=== PATIENT | female | born 1950 | race Caucasian/White ===

== ENCOUNTER → 2016-06-29 | Outpatient (REF) | payer OTHER ==
[~2016-06-29] MED LIST: ASPI81CH PO; COUM1TAB17 PO; LIPI20TA PO; NICO7DIS4 TD
== END ==
LOC: M SFHCPLAZ 10:35
PROVIDERS: ATTEND Family Medicine
DX: R30.0 Dysuria (principal); Z79.01 Long term (current) use of anticoagulants

== ENCOUNTER → 2016-11-26 | Outpatient (REF) | payer MEDICARE, OTHER | LOC: M SFHCPLAZ 08:04 | PROVIDERS: ATTEND Family Medicine | DX: Z51.81 Encounter for therapeutic drug level monitoring (principal); Z79.01 Long term (current) use of anticoagulants; R76.0 Raised antibody titer; Z53.8 Procedure and treatment not carried out for other reasons ==

== ENCOUNTER → 2017-03-15 | Outpatient (CLI) | payer MEDICARE, OTHER ==
[2017-03-15 09:10] LABS: ALBUMIN 3.6 GM/DL (3.2-5.2); ALBUMIN/GLOBULIN RATIO 0.97 (1.00-1.93); BILIRUBIN,TOTAL 0.7 MG/DL (0.2-1.0); CREATININE FOR GFR 0.99 MG/DL (0.55-1.02); GLOMERULAR FILTRATION RATE 59.9 (>45); POTASSIUM SERUM 4.9 MEQ/L (3.5-5.1); TOTAL PROTEIN 7.3 GM/DL (6.4-8.2)
== END ==
LOC: M LAB 08:09
PROVIDERS: ATTEND Obstetrics & Gynecology
DX: Z68.42 Body mass index [BMI] 45.0-49.9, adult (principal); E66.9 Obesity, unspecified

== ENCOUNTER → 2017-04-18 | Outpatient (CLI) | payer MEDICARE ==
--- NOTE | 2017-04-18 16:47 | REP ---
Digital diagnostic unilateral right breast mammography with CAD and focused right breast sonography: History: Screening mammography April 11, 2017 is BIRADS category zero incomplete because of an asymmetric density in the upper outer quadrant on the right. Diagnostic imaging was recommended. Comparison mammography includes April 11, 2015 prior mammography as well. Mammographic findings: Magnified focal spot compression CC, true MLO, and MLO views of the right breast were obtained. These demonstrate that the area in question compresses away to normal breast parenchyma unchanged from the 2015 prior study. No spiculation architectural distortion or mass-like features are seen. Sonographic findings: The right breast is scanned from 9 o'clock 12 o'clock in the upper outer quadrant. Heterogeneous fibroglandular background echotexture is seen. No mass cyst or architectural distortion is seen. Impression: BIRADS category II benign right breast imaging. Repeat screening mammography recommended 1 year. BI-RADS/ACR category 2 mammogram. Benign finding(s). Routine annual screening mammography (for women over age 40). This mammogram was interpreted with the aid of an FDA-approved computer-aided detection system. The patient states that she has not had a clinical breast exam in over a year. The patient letter being requested is M1. Signed by Sorin Ventura MD 04/18/2017 05:29 P
== END ==
LOC: M RAD 12:22
PROVIDERS: ATTEND Obstetrics & Gynecology
DX: R92.2 Inconclusive mammogram (principal)
CPT/HCPCS: 76642; G0206

== ENCOUNTER → 2017-04-23 | Outpatient (REF) | payer MEDICARE | LOC: M SFHCPLAZ 11:46 | PROVIDERS: ATTEND Family Medicine | DX: R30.0 Dysuria (principal) | CPT/HCPCS: 81001; 81002; 87086; G0463 ==

== ENCOUNTER → 2018-04-14 | Outpatient (CLI) | payer MEDICARE | LOC: M WHC 14:02 | DX: Z12.31 Encounter for screening mammogram for malignant neoplasm of breast (principal); Z78.0 Asymptomatic menopausal state | CPT/HCPCS: 77067 ==

== ENCOUNTER → 2018-09-25 | Outpatient (REF) | payer MEDICARE ==
[~2018-09-25] MED LIST changes: -ASPI81CH PO; +ASPI81CH49 PO
== END ==
LOC: M SFHCPLAZ 15:55
PROVIDERS: ATTEND Dermatology
DX: L85.9 Epidermal thickening, unspecified (principal); D22.5 Melanocytic nevi of trunk

== ENCOUNTER 2018-12-23 17:36 | Inpatient (IN) | payer MEDICARE ==
[~2018-12-23] VITALS: Ht 152.4 cm; Wt 127.8 kg
--- NOTE | 2018-12-23 19:02 | REPVR ---
EXAM: US Duplex Left Lower Extremity Veins, Limited EXAM DATE/TIME: 12/23/2018 6:48 PM CLINICAL HISTORY: 68 years old, female; Pain; Leg, lower; Left; Additional info: Pain, swelling, redness TECHNIQUE: Imaging protocol: Real-time Duplex ultrasound of the Left Lower Extremity with 2-D castro scale, color Doppler flow and spectral waveform analysis with image documentation. Limited exam focused on the left lower extremity veins. COMPARISON: US Duplex, Ext,LOWER veins,unilat 12/29/2013 7:59 PM FINDINGS: Left deep veins: Unremarkable. The common femoral, femoral and popliteal veins are patent without thrombus. Normal compressibility, augmentation response and Doppler waveforms. Soft tissues: Unremarkable. IMPRESSION: No sonographic evidence of deep vein thrombosis. Electronically signed by: José Antonio Turcios On 12/23/2018 19:02:10 PM
[2018-12-23] MEDS ORDERED: NS 1,000 ML IV ONE (19:45)
[2018-12-23 20:18] LABS: BASO % 0.4 % (0.0-1.0); EOS % 0.2 % (0.0-3.0); HEMATOCRIT 48.7 % (36.0-47.0); HEMOGLOBIN 15.6 g/dl (12.0-15.5); LYMPH # 0.7 10^3/uL (1.5-4.5); LYMPH % 8.8 % (24.0-44.0); MEAN CORPUSCULAR HEMOGLOBIN 34.4 pg (27.0-33.0); MEAN CORPUSCULAR VOLUME 107.5 fl (80.0-96.0); MONO # 0.4 10^3/uL (0.0-0.8); MONO % 4.3 % (0.0-5.0); NEUTROPHILS % 86.1 % (36.0-66.0); PLATELET COUNT, AUTOMATED 181 10^3/uL (150-450); RED BLOOD COUNT 4.53 10^6/uL (4.00-5.40); WHITE BLOOD COUNT 8.2 10^3/uL (4.0-10.0)
[2018-12-23 20:42] LABS: ERYTHROCYTE SEDIMENTATION RATE 7 mm/hr (0-30)
[2018-12-23] MEDS: IPRATROPIUM 0.5MG/ALBUTEROL 2.5MG INH SOL UD 3ML (DUONEB)(J7620) NEB PRN ×2 (20:48→21:36)
[2018-12-23 21:04] LABS: INR 1.41
[2018-12-23 21:06] LABS: D-DIMER QUANT 548.14 ng/ml (<500)
[2018-12-23] MEDS ORDERED: ISOVUE-370 76% 100ML VIAL (Q9967) As Ordered ONE ×2 (22:04→22:24)
[2018-12-23] MEDS ORDERED: PIPERACILLIN/TAZOBACTAM SOD 3.375 GM in D5W MINI-BAG PLUS 50 ML IV ONE (22:30)
--- NOTE | 2018-12-23 23:12 | REPVR ---
EXAM: CT Angiography Chest With Contrast EXAM DATE/TIME: 12/23/2018 10:48 PM CLINICAL HISTORY: 68 years old, female; Shortness of breath; Additional info: Decr. O2, hazy cxr, SOB, pursed lip breathing TECHNIQUE: Imaging protocol: Axial computed tomographic angiography images of the chest with intravenous contrast using CT angiography protocol. Coronal and sagittal reformatted images were created and reviewed. 3D rendering: MIP reconstructed images were created and reviewed. Radiation optimization: All CT scans at this facility use at least one of these dose optimization techniques: automated exposure control; mA and/or kV adjustment per patient size (includes targeted exams where dose is matched to clinical indication); or iterative reconstruction. Contrast material: ISOVUE 370; Contrast volume: 75 ml; Contrast route: IV; COMPARISON: CT ANGIO CHEST 12/30/2013 12:51 AM FINDINGS: Pulmonary arteries: Contrast opacification satisfactory. No intraluminal filling defect. Aorta: Unremarkable. No aneurysm or dissection. Lungs: Mild emphysema. Mild linear stranding and groundglass, likely due to atelectasis and/or scarring. No focal consolidation. Pleural space: Unremarkable. No pneumothorax. No pleural effusion. Heart: Unremarkable. No cardiomegaly. No pericardial effusion. Mediastinum: Small hiatal hernia. Gallbladder and bile ducts: Cholelithiasis. Phrygian cap. Adrenals: Mild nonspecific nodular left greater than right adrenal thickening, likely secondary to benign adenomas. Kidneys and ureters: Right renal cortical scarring. Nonobstructing left renal calculus. Lymph nodes: No pathologically enlarged lymph nodes. Bones/joints: No acute osseous abnormality. Osteopenia. Degenerative changes. Soft tissues: Unremarkable. IMPRESSION: 1. No CT evidence of pulmonary embolism. 2. Additional findings, as above. Electronically signed by: José Antonio Turcios On 12/23/2018 23:12:36 PM
[2018-12-23] MEDS ORDERED: METO1TAB87 PO (23:39)
[2018-12-23] MEDS ORDERED: FURO40TA2 PO (23:39)
[2018-12-23] MEDS ORDERED: LISI-542 PO (23:39)
[2018-12-23] MEDS ORDERED: ATOR40TA75 PO (23:39)
[2018-12-23] MEDS ORDERED: ELIQ5TAB PO (23:39)
[2018-12-23] MEDS ORDERED: ACET-907 PO (23:55)
--- NOTE | 2018-12-24 00:28 | HPEPDOC ---
General Date of Admission 12/23/16 Date of Service: Dec 23, 2018 Primary Care Physician: Nico Juarez MD Attending Physician: TEQUILA MENDEZ MD Chief Complaint The patient is a 68-year-old female admitted with a reason for visit of Leg Pain. Source: Patient Exam Limitations: No limitations Timing/Duration: Day(s) Severity: Moderate Associated Symptoms: Other History of Present Illness 68 years old, obese, white female past medical history of hypertension, bilateral lower extremity edema, chronic vascular changes, emphysema, was scratched by a kitten on her left leg and ever since has increasing redness, swelling and difficulty walking. She decided come to ER. Patient did not complain to me about her respiratory problems but as per ER records, she complained of shortness of breath for which she had a pulmonary workup done in ED. Patient is being admitted with the diagnosis of left lower extremity cellulitis and possible emphysema Home Medications Scheduled Apixaban (Eliquis) 5 Mg Tablet, 5 MG PO BID, (Reported) 0700, 1700 Atorvastatin Calcium (Atorvastatin Calcium) 40 Mg Tablet, 40 MG PO QPM, (Reported) TAKES AT 1700 Furosemide (Furosemide) 40 Mg Tablet, 40 MG PO DAILY, (Reported) Lisinopril (Lisinopril) 5 Mg Tablet, 5 MG PO DAILY, (Reported) Metoprolol Tartrate (Metoprolol Tartrate) 25 Mg Tablet, 37.5 MG PO DAILY, (Reported) Scheduled PRN Acetaminophen (Tylenol) 325 Mg Tablet, 650 MG PO Q4H PRN for HEADACHE OR PAIN, (Reported) Allergies Coded Allergies: No Known Allergies (Unverified , 12/30/13) Past Medical History Medical History Hypertension, obesity, DVT, PE Surgical History Hysterectomy Social History * Smoker: Denies Alcohol: Denies Drugs: denies A-FIB/CHADSVASC A-FIB History Current/History of A-Fib/PAF?: No Review of Systems Constitutional: Denies: Chills, Fever, Malaise, Night Sweats, Weakness, Fatigue, Weight Loss, Lethargy, Other Eyes: Denies: Pain, Vision change, Conjunctivae inflammation, Eyelid inflammation, Redness, Other ENT: Denies: Head Aches, Ear Pain, Dysphagia, Sinus Congestion, Post Nasal Drip, Sore Throat, Epistaxis, Other Symptoms Skin: Denies: Rash, Lesions, Jaundice, Bruising, Itching, Dry, Breakdown, Nail Changes, Other Pulmonary: Denies: Dyspnea, Cough, Pleuritic Chest Pain, Other Symptoms Cardiovascular: Denies: Chest Pain, Palpitations, Orthopnea, Paroxysmal Noc. Dyspnea, Edema, Lt Headedness, Other Symptoms Gastrointestinal: Denies: Nausea, Vomiting, Abdominal Pain, Diarrhea, Constipation, Melena, Hematochezia, Other Symptoms Genitourinary: Denies: Dysuria, Frequency, Incontinence, Hematuria, Retention, Other Symptoms Hematologic: Denies: Bruising, Bleeding Excessively, Petecchia, Purpura, Enlarg ed Lymph Nodes, Other Hematologic Musculoskeletal: Reports: Other Symptoms (after lower extremity redness and swelling and difficulty walking) Neurological: Denies: Weakness, Numbness, Incoordination, Change in speech, Confusion, Seizures, Other Symptoms Psych: Denies: Mood Normal, Anxiety, Depression, Memory Issues, Thoughts of Lucía f Harm, Anger, Thoughts of Harming Other, Other Psych Physical Examination General Exam: Positive: Alert, Cooperative Eye Exam: Positive: PERRLA, Conjunctiva & lids normal ENT Exam: Positive: Atraumatic Neck Exam: Positive: Supple Chest Exam: Positive: Wheezing (. Scattered bilateral wheezing with decreased breath sounds bilaterally) Heart Exam: Positive: Rate Normal, Normal S1, Normal S2 Abdomen Exam: Positive: Normal bowel sounds, Soft Extremity Exam: Positive: Other (. Positive redness, swelling and tenderness, left lower extremity chronic vascular changes. Bilateral lower extremity) Skin Exam: Positive: Other skin issue (as above) Psych Exam: Positive: Mental status NL, Mood NL, Oriented x 3 Vital Signs Vital Signs Date Time Temp Pulse Resp B/P (MAP) Pulse Ox O2 Delivery O2 Flow Rate FiO2 12/23/18 20:43 100 92 Nasal Cannula 2.0 12/23/18 19:51 98.8 101 119/59 (79) Laboratory Data Labs 24H Laboratory Tests 2 12/23/18 20:06: Prothrombin Time 17.0H, Prothromb Time International Ratio 1.41, D-Dimer, Quantitative 548.14H 12/23/18 20:07: Immature Granulocyte % (Auto) 0.2, White Blood Count 8.2, Red Blood Count 4.53, Hemoglobin 15.6H, Hematocrit 48.7H, Mean Corpuscular Volume 107.5H, Mean Corpuscular Hemoglobin 34.4H, Mean Corpuscular Hemoglobin Concent 32.0, Red Cell Distribution Width 13.2, Platelet Count 181, Neutrophils (%) (Auto) 86.1H, Lymphocytes (%) (Auto) 8.8L, Monocytes (%) (Auto) 4.3, Eosinophils (%) (Auto) 0.2, Basophils (%) (Auto) 0.4, Neutrophils # (Auto) 7.0, Lymphocytes # (Auto) 0.7L, Monocytes # (Auto) 0.4, Eosinophils # (Auto) 0.0, Basophils # (Auto) 0.0, Nucleated Red Blood Cells % (auto) 0.0, Erythrocyte Sedimentation Rate 7, Lactic Acid Level 2.3*H, C-Reactive Protein, Quantitative 1.49H 12/23/18 20:11: POC Glucose (Misc Panel) 131H, POC Sodium (Misc Panel) 141, POC Potassium (Misc Panel) 4.4, POC Chloride (Misc Panel) 98, POC Total CO2 (Misc Panel) 32.0H, POC Blood Urea Nitrogen (Misc Panel 15, POC Ionized Calcium (Misc Panel) 4.5, POC Creatinine (Misc Panel) 1.0, POC Hematocrit (Misc Panel) 50.0 12/23/18 22:00: POC Total CO2 (Misc Panel) 28.0H, POC pH (Misc Panel) 7.387, POC Base Excess (Misc Panel) 2.0, POC Saturated Percent O2 (Misc) 90L, POC pO2 (Misc Panel) 61.0L, POC pCO2 (Misc Panel) 45.0, POC HCO3 (Misc Panel) 27.0H CBC/BMP Laboratory Tests 12/23/18 20:07 Red Blood Count 4.53, Mean Corpuscular Volume 107.5 H, Mean Corpuscular Hemoglobin 34.4 H, Mean Corpuscular Hemoglobin Concent 32.0, Red Cell Dis tribution Width 13.2, Neutrophils (%) (Auto) 86.1 H, Lymphocytes (%) (Auto) 8.8 L, Monocytes (%) (Auto) 4.3, Eosinophils (%) (Auto) 0.2, Basophils (%) (Auto) 0.4, Neutrophils # (Auto) 7.0, Lymphocytes # (Auto) 0.7 L, Monocytes # (Auto) 0.4, Eosinophils # (Auto) 0.0, Basophils # (Auto) 0.0 Microbiology Microbiology 12/23/18 Blood Culture, Received Pending 12/23/18 Blood Culture, Received Pending Problems (1) Cellulitis of left leg Problem Text: Admit patient to medical floor under 's service IVF normal saline 75 mL per hr Teflaro 400 mg IV for 12 hours, patient did receive 1 dose of Zosyn in ED Venous Doppler of left lower extremity, no DVT Elevation of left lower extremity Continue home meds Repeat a.m. labs (2) Emphysema of lung Status: Acute Problem Text: History of PE in the past on eliquis, also has a EC filter in place Repeat CT in November was negative for PE, leg Doppler of lower extremity was negative for DVT Possible emphysema, with a start DuoNeb U4 hour schedule Oxygen support Further workup as per PCP Plan / VTE VTE Prophylaxis Ordered?: Yes TEQUILA MENDEZ MD Dec 24, 2018 00:28
[2018-12-24] MEDS: ACETAMINOPHEN TAB 650MG DOSE (2X325MG) PO PRN ×3 (01:44→15:43)
[2018-12-24] MEDS: IPRATROPIUM 0.5MG/ALBUTEROL 2.5MG INH SOL UD 3ML (DUONEB)(J7620) NEB SCH ×4 (01:44→20:35)
--- NOTE | 2018-12-24 06:23 | REP ---
PA and lateral chest: There are no comparisons. There is cardiomegaly. There are bibasilar densities that could be acute, chronic or combination. No pleural effusions are identified. The jamila, mediastinum, and skeletal structures are unremarkable. Impression: Cardiomegaly. Nonspecific bibasilar densities. Electronically Signed by Chidi Kingsley MD 12/24/2018 06:16 A
[2018-12-24] MEDS: CEFTAROLINE FOSAMIL 400 MG in D5W MINI-BAG PLUS 50 ML IV SCH ×2 (06:32→17:22)
[2018-12-24 07:14] LABS: HEMATOCRIT 43.1 % (36.0-47.0); HEMOGLOBIN 13.9 g/dl (12.0-15.5); MEAN CORPUSCULAR HEMOGLOBIN 35.2 pg (27.0-33.0); MEAN CORPUSCULAR HGB CONC 32.3 g/dl (32.0-36.5); MEAN CORPUSCULAR VOLUME 109.1 fl (80.0-96.0); PLATELET COUNT, AUTOMATED 166 10^3/uL (150-450); RED BLOOD COUNT 3.95 10^6/uL (4.00-5.40); WHITE BLOOD COUNT 11.2 10^3/uL (4.0-10.0)
[2018-12-24 08:00] VITALS: BP 128/56
[2018-12-24] MEDS: APIXABAN 5 MG TAB (ELIQUIS) PO SCH ×2 (08:00→17:22)
[2018-12-24] MEDS: FUROSEMIDE 40 MG TAB PO SCH (08:00)
[2018-12-24 08:02] LABS: BILIRUBIN,TOTAL 1.7 MG/DL (0.2-1.0); CALCIUM LEVEL 8.3 MG/DL (8.8-10.2); CREATININE FOR GFR 1.13 MG/DL (0.55-1.30); GLOMERULAR FILTRATION RATE 51.1 (>45); POTASSIUM SERUM 3.9 MEQ/L (3.5-5.1)
[2018-12-24] MEDS: LISINOPRIL 5 MG TAB PO SCH (08:05)
[2018-12-24] MEDS: METOPROLOL TART 25 MG TABLET PO SCH (08:06)
[2018-12-24 11:27] LABS: FOLATE 11.1 NG/ML (>5.4)
--- NOTE | 2018-12-24 12:15 | HPE ---
DATE: 12/24/2018 Evon is seen in an interim bed in the emergency room. She was admitted with cellulitis of her left lower leg after she was viciously attacked by her brother's kitten and then developed cellulitis. Her primary care provider is Dr. Coretta Delcid at the [facility]. Last appointment there was for a wellness visit, 04/04/2018. I reviewed those notes. To summarize the patient's medical history: 1. She has a history of remote myocardial infarction in the right coronary artery (RCA) territory. 2. Hyperlipidemia. 3. Saddle pulmonary embolism with a deep venous thrombosis (DVT) on the left side status post inferior vena cava (IVC) filter. 4. Pulmonary hypertension, probably from hypoventilation from morbid obesity. 5. History of tobacco abuse, quite smoking 2013. 6. Right subclavian artery stenosis. 7. Has a lupus anticoagulant present, which requires shelter anticoagulation. 8. She has hypertensive heart disease. SURGICAL HISTORY: 1. Hysterectomy with bilateral salpingo-oophorectomy (BSO). 2. Inferior vena cava (IVC) filter. FAMILY HISTORY: Father of unspecified cancer. Mother with congestive heart failure (CHF). SOCIAL HISTORY: Quit smoking 2013. No alcohol. She is . No regular exercise. REVIEW OF SYSTEMS: She denies fevers or chills. She was a little short of breath in the emergency room. She says that is chronic. She is morbidly obese. Her body mass index (BMI) in the office last time was 52. HOME MEDICATION LIST: - metoprolol tartrate 25 mg 1-1/2 tablets (37.5 mg) daily - lisinopril 5 mg daily - atorvastatin 40 mg daily - Eliquis 5 mg twice a day - furosemide 40 mg daily ALLERGIES: None known. PHYSICAL EXAMINATION: Blood pressure 120/56, pulse of 94, respiratory rate 22, 94% oxygen saturation on room air. GENERAL APPEARANCE: Morbidly obese, lying in bed, no distress. No jugular venous distention (JVD). LUNGS: Decreased breath sounds all van. HEART: Regular rate and rhythm. No murmur. ABDOMEN: Soft, obese, nontender. No masses. She has bilateral pitting edema and venous stasis dermatitis. The right lower extremity is erythematous from ankle to knee with yellow crusting present. LABORATORIES: Ultrasound of the legs showed no deep venous thrombosis (DVT). She had a CT angiogram done which showed no pulmonary embolism. She had a chest x-ray done and eventually got around to treating her cellulitis. White count 11.2, hemoglobin 39, platelets 166. Sodium 139, potassium 3.9, BUN 15, creatinine 1.1, glucose 163. She had lactates done. They have not contributed at all to her care. IMPRESSION: 1. Cellulitis, left lower extremity. Started on ceftaroline. She is provided with coverage against Staphylococcus and Streptococcus. Agree with the dosing on this. 2. Hypertensive heart disease. Continue her current regimen, including her lisinopril, metoprolol and furosemide. 3. Hyperlipidemia. Continue Lipitor 40 mg. 4. Question omar obstructive sleep apnea (SAMMY). She looks pickwickian and I am ordering nocturnal oximetry. 5. Morning labs have been ordered.
[2018-12-24 14:35] VITALS: BP 172/59
[2018-12-24] MEDS: ATORVASTATIN 20 MG TAB PO SCH (17:22)
[2018-12-24 22:00] VITALS: BP 113/64
[2018-12-25] MEDS: ACETAMINOPHEN TAB 650MG DOSE (2X325MG) PO PRN ×2 (01:05→20:57)
[2018-12-25] MEDS: IPRATROPIUM 0.5MG/ALBUTEROL 2.5MG INH SOL UD 3ML (DUONEB)(J7620) NEB SCH ×5 (01:35→20:10)
[2018-12-25] MEDS: CEFTAROLINE FOSAMIL 400 MG in D5W MINI-BAG PLUS 50 ML IV SCH ×2 (05:15→17:48)
[2018-12-25 06:00] VITALS: BP 114/75
[2018-12-25 06:31] LABS: HEMOGLOBIN 14.1 g/dl (12.0-15.5); MEAN CORPUSCULAR HEMOGLOBIN 35.5 pg (27.0-33.0); MEAN CORPUSCULAR VOLUME 110.8 fl (80.0-96.0); PLATELET COUNT, AUTOMATED 133 10^3/uL (150-450); RED BLOOD COUNT 3.97 10^6/uL (4.00-5.40); WHITE BLOOD COUNT 9.5 10^3/uL (4.0-10.0)
[2018-12-25 06:49] LABS: GLOMERULAR FILTRATION RATE 58.9 (>45); POTASSIUM SERUM 4.1 MEQ/L (3.5-5.1)
[2018-12-25] MEDS: FUROSEMIDE 40 MG TAB PO SCH (08:38)
[2018-12-25] MEDS: APIXABAN 5 MG TAB (ELIQUIS) PO SCH ×2 (08:40→17:48)
[2018-12-25] MEDS: LISINOPRIL 5 MG TAB PO SCH (09:00)
[2018-12-25] MEDS: METOPROLOL TART 25 MG TABLET PO SCH (09:00)
--- NOTE | 2018-12-25 11:36 | IPN ---
DATE: 12/25/2018 Evon is being treated for left lower leg cellulitis. No fever or chills. She said the redness is better. Blood pressure is a little low today so we are adjusting her meds. PHYSICAL EXAMINATION: Blood pressure 101/69. Vital signs are otherwise stable. Lungs clear. Heart regular rhythm Abdomen soft nontender. Erythema left lower leg about the same as yesterday. LABS: White count is down to 9.5. Electrolytes are unremarkable. Renal function is normal. Blood cultures are negative. IMPRESSION: 1. Cellulitis, left lower leg: Continue ceftaroline. She seems to be responding to this. 2. Hypertensive heart disease: Hold her lisinopril in the face of the borderline blood pressures. 3. ? Obstructive sleep apnea (SAMMY). Nocturnal oxymetry has been ordered and pending. 4. Hyperlipidemia: Continue on atorvastatin 40 mg daily.
[2018-12-25 14:00] VITALS: BP 115/70
[2018-12-25] MEDS: ATORVASTATIN 20 MG TAB PO SCH (17:48)
[2018-12-25 22:00] VITALS: BP 125/73
[2018-12-26] MEDS: IPRATROPIUM 0.5MG/ALBUTEROL 2.5MG INH SOL UD 3ML (DUONEB)(J7620) NEB SCH ×4 (02:04→19:26)
[2018-12-26 06:00] VITALS: BP 129/73
[2018-12-26] MEDS: CEFTAROLINE FOSAMIL 400 MG in D5W MINI-BAG PLUS 50 ML IV SCH ×2 (06:12→17:15)
[2018-12-26 06:53] LABS: HEMATOCRIT 40.3 % (36.0-47.0); HEMOGLOBIN 12.8 g/dl (12.0-15.5); MEAN CORPUSCULAR HGB CONC 31.8 g/dl (32.0-36.5); MEAN CORPUSCULAR VOLUME 107.2 fl (80.0-96.0); PLATELET COUNT, AUTOMATED 165 10^3/uL (150-450); RED BLOOD COUNT 3.76 10^6/uL (4.00-5.40); WHITE BLOOD COUNT 6.6 10^3/uL (4.0-10.0)
[2018-12-26 07:17] LABS: BLOOD UREA NITROGEN 14 MG/DL (7-18); CALCIUM LEVEL 8.7 MG/DL (8.8-10.2); CARBON DIOXIDE LEVEL 32 MEQ/L (21-32); CHLORIDE LEVEL 104 MEQ/L (98-107); CREATININE FOR GFR 0.95 MG/DL (0.55-1.30); GLOMERULAR FILTRATION RATE > 60.0 (>45); GLUCOSE, FASTING 133 MG/DL (70-100); POTASSIUM SERUM 4.2 MEQ/L (3.5-5.1); SODIUM LEVEL 140 MEQ/L (136-145)
[2018-12-26] MEDS: METOPROLOL TART 25 MG TABLET PO SCH (08:45)
[2018-12-26] MEDS: APIXABAN 5 MG TAB (ELIQUIS) PO SCH ×2 (08:46→17:15)
[2018-12-26] MEDS: FUROSEMIDE 40 MG TAB PO SCH (08:46)
[2018-12-26] MEDS ORDERED: SENOKOT S TAB PO PRN (10:45)
[2018-12-26] MEDS ORDERED: MIRALAX *UNIT DOSE* 17GM PACKET PO PRN (10:45)
[2018-12-26 14:00] VITALS: BP 115/63
--- NOTE | 2018-12-26 15:00 | IPN ---
DATE: 12/26/2018 Evon is seen on 12/26/2018. She has cellulitis of the left lower extremity. She seems to be responding to prescribed therapy. Seems a little slow to get motivation to get out of bed. Plan discharge. PHYSICAL EXAMINATION: VITAL SIGNS: Afebrile. Stable. LUNGS: Clear. HEART: Regular rate and rhythm. ABDOMEN: Soft, nontender. Decreasing erythema left lower leg. IMPRESSION: Cellulitis left lower leg. PLAN: 1. Discharge tomorrow. I will put in the discharge orders so she can be discharged early in the morning. After another day of intravenous antibiotics, she can be discharged on Keflex. 2. Hypertension. Blood pressure is well-controlled. 3. Question omar obstructive sleep apnea (SAMMY). Nocturnal oximetry is still pending. Dr. Coretta Delcid is her primary care provider, can follow up on this after discharge.
[2018-12-26] MEDS: ATORVASTATIN 20 MG TAB PO SCH (17:15)
[2018-12-26] MEDS: guaiFENesin SYRUP 200 MG/10 ML UDC PO PRN ×2 (18:26→22:33)
[2018-12-26 22:00] VITALS: BP 113/73
[2018-12-27] MEDS: IPRATROPIUM 0.5MG/ALBUTEROL 2.5MG INH SOL UD 3ML (DUONEB)(J7620) NEB SCH ×3 (01:05→16:19)
[2018-12-27] MEDS: guaiFENesin SYRUP 200 MG/10 ML UDC PO PRN (05:19)
[2018-12-27] MEDS: CEFTAROLINE FOSAMIL 400 MG in D5W MINI-BAG PLUS 50 ML IV SCH (05:19)
[2018-12-27 06:00] VITALS: BP 112/76
[2018-12-27 06:40] LABS: HEMATOCRIT 40.1 % (36.0-47.0); HEMOGLOBIN 12.7 g/dl (12.0-15.5); MEAN CORPUSCULAR HEMOGLOBIN 33.7 pg (27.0-33.0); MEAN CORPUSCULAR HGB CONC 31.7 g/dl (32.0-36.5); MEAN CORPUSCULAR VOLUME 106.4 fl (80.0-96.0); PLATELET COUNT, AUTOMATED 175 10^3/uL (150-450); RED BLOOD COUNT 3.77 10^6/uL (4.00-5.40)
[2018-12-27 06:56] LABS: BLOOD UREA NITROGEN 13 MG/DL (7-18); CALCIUM LEVEL 9.2 MG/DL (8.8-10.2); CARBON DIOXIDE LEVEL 33 MEQ/L (21-32); CHLORIDE LEVEL 101 MEQ/L (98-107); CREATININE FOR GFR 0.96 MG/DL (0.55-1.30); GLOMERULAR FILTRATION RATE > 60.0 (>45); GLUCOSE, FASTING 132 MG/DL (70-100); POTASSIUM SERUM 3.8 MEQ/L (3.5-5.1); SODIUM LEVEL 139 MEQ/L (136-145)
[2018-12-27] MEDS: FUROSEMIDE 40 MG TAB PO SCH (08:22)
[2018-12-27] MEDS: APIXABAN 5 MG TAB (ELIQUIS) PO SCH ×2 (08:22→17:18)
[2018-12-27 08:24] VITALS: BP 112/80
[2018-12-27] MEDS: METOPROLOL TART 25 MG TABLET PO SCH (08:24)
[2018-12-27] MEDS ORDERED: KEFL500C17 PO (11:29)
--- NOTE | 2018-12-27 13:02 | DSES ---
DATE OF ADMISSION: 12/23/2018 DATE OF DISCHARGE: PRIMARY CARE PROVIDER: Dr. Coretta Delcid, [facility] PRINCIPAL DIAGNOSIS: Cellulitis left lower extremity. SECONDARY DIAGNOSES: 1. Hypoxemia, probably from hypoventilation/obesity syndrome. 2. Remote history of myocardial infarction right coronary artery distribution. 3. Hyperlipidemia. 4. Pulmonary hypertension probably from hypoventilatory syndrome. 5. History of saddle embolism, deep vein thrombosis (DVT) left leg status post IVC filter. 6. Lupus anticoagulant status. 7. Hypertensive heart disease. HISTORY: Patient admitted with cellulitis of the left lower extremity. Details as per history and physical from admission. HOSPITAL COURSE: Patient admitted to a medical bed, started on ceftaroline. She responded well to this. The redness of the leg decreased. She was found to have baseline hypoxemia. Her oxygen saturation on day of discharge is 80% on room air. She had a nocturnal oximetry done for suspected obstructive sleep apnea (SAMMY), results are pending at the time of discharge and this will need to be followed up at her follow-up appointment. The rest of her medical problems remained stable during her hospitalization. On the day of discharge she is resting comfortably, leg is less red. She is eager to go home. Her blood pressure is 112/80, oxygen saturation 95% on 2 liters, 80% on room air. General appearance: Morbidly obese. No jugular venous distention (JVD). Lungs decreased breath sounds. Heart regular rhythm. Abdomen soft, nontender. Left lower extremity is erythematous but improved. Edema is much better. LABS: Today white count is 6, hemoglobin 12.7, platelets 175, sodium 139, potassium 3.8, BUN 13, creatinine 0.9, glucose 132. DISPOSITION: She is discharged home in improved and stable condition. She will follow-up with Dr. Coretta Delcid in the E office in one week. ACTIVITY: Her activity is as tolerated. DIET: No added salt diet. Discharge on oxygen 2 liters nasal cannula continuous. Medicines will continue to be: - Eliquis 5 mg twice a day - atorvastatin 40 mg daily - furosemide 40 mg daily - lisinopril 5 mg daily - metoprolol tartrate 37.5 mg daily The only new medication is Keflex 500 mg every 8 hours for seven days. She has a nocturnal oximetry that is pending and will need follow-up disposition if suspicion for SAMMY after results are back. cc: Coretta Delcid DO, PGY-3
[2018-12-27 14:00] VITALS: BP 128/68
[2018-12-27] MEDS: ATORVASTATIN 20 MG TAB PO SCH (17:18)
--- NOTE | 2018-12-29 23:51 | NOCOX ---
DATE OF STUDY: 12/24/2018 ORDERED BY: Dr. Juarez Study is performed first on room air, then 1 liter, then 2 liters nasal cannula oxygen. Study of excellent technical quality. Mean oxygen saturation for the study 88.3%. Despite supplemental oxygen, multiple cyclic oxygen desaturations are identified. The overall baseline is improved with supplemental oxygen, but cyclic oxygen desaturations suggesting concomitant underlying obstructive apnea syndrome are observed. 2 liters nasal cannula does appear to reset her baseline to a more reasonable value. IMPRESSION: Abnormal nocturnal oximetry in view of the above. Please correlate clinically.
== END 2018-12-27 18:33 | disposition home health service (06) | DRG 603 ==
LOC: M ED 17:36 → M ED INP 23:57 → M MSPAV 12-24 14:38
PROVIDERS: ADMIT Internal Medicine; ATTEND Family Medicine
DX: L03.116 Cellulitis of left lower limb (principal); D68.62 Lupus anticoagulant syndrome; E66.2 Morbid (severe) obesity with alveolar hypoventilation; Z68.43 Body mass index [BMI] 50.0-59.9, adult; J43.9 Emphysema, unspecified; R60.0 Localized edema; I25.2 Old myocardial infarction; E78.5 Hyperlipidemia, unspecified; I27.20 Pulmonary hypertension, unspecified; I11.9 Hypertensive heart disease without heart failure; Z86.711 Personal history of pulmonary embolism; Z86.718 Personal history of other venous thrombosis and embolism; Z79.01 Long term (current) use of anticoagulants; Z87.891 Personal history of nicotine dependence; Z95.828 Presence of other vascular implants and grafts; Z79.899 Other long term (current) drug therapy

== ENCOUNTER → 2019-03-05 | Outpatient (CLI) | payer MEDICARE ==
[~2019-03-05] MED LIST changes: +ACET-907 PO; +ATOR40TA75 PO; +ELIQ5TAB PO; +FURO40TA2 PO; +KEFL500C17 PO; +LISI-542 PO; +METO1TAB87 PO
--- NOTE | 2019-03-06 16:01 | ECHO ---
DATE OF PROCEDURE: 03/05/2019 DATE OF : 1950 AGE: 68 GENDER: Female HEIGHT: 60 inches WEIGHT: 275 pounds BODY SURFACE AREA: 2.14 m2 OUTPATIENT REFERRING PHYSICIAN: Dr. Brittany Godoy INDICATION: Chronic respiratory failure. MEASUREMENTS: 2-D Measurements: RV: 3.0 cm LV: 4.2 cm Septum: 1.0 cm Posterior wall: 1.0 cm Aortic root: 2.8 cm LA: 3.4 cm LVEF: 70% Doppler Measurements: AV: 1.58 m/s LVOT: 0.9 m/s LVOT diameter: 2.1 cm MV: E: 92, A: 113, EA ratio: 0.8 Early mitral deceleration time: 280 ms E prime: 6.3, A prime: 9.5, E/E prime ratio: 14.6 PCWP: 16.2 mmHg PV: 1.0 m/s Pulmonary artery acceleration time: 102 ms RVSP: 33-38 mmHg IVC: 2.0 cm COMMENTS: Normal sinus rhythm. Without intraventricular conduction disturbance. Technically challenging study in light of the patient's body habitus but diagnostically useful information was still obtained. M-mode and two-dimensional echocardiography was performed with pulsed, continuous wave, color flow and tissue Doppler studies. Normal left ventricular size, wall thickness and hyperkinetic wall motion. Normal left atrial size with Doppler evidence of an impairment of LV diastolic function but no more than a mildly elevated estimated mean left atrial pressure. Normal right heart chamber sizes and motion with Doppler evidence of mild pulmonary hypertension. Normal IVC size with adequate respiratory collapse against a significantly elevated central venous pressure. Aortic valvular sclerosis without stenosis or apparent insufficiency. Normal aortic root size. Normal appearing and functioning mitral valvular structures. No apparent intracardiac mass or pericardial effusion.
== END ==
LOC: M CARPUL 08:46
PROVIDERS: ATTEND Internal Medicine Pulmonary Disease
DX: J96.11 Chronic respiratory failure with hypoxia (principal); I35.8 Other nonrheumatic aortic valve disorders

== ENCOUNTER → 2019-03-12 | Outpatient (CLI) | payer MEDICARE ==
--- NOTE | 2019-03-18 10:09 | SLEEPCENT ---
DATE OF STUDY: 03/12/2019 ORDERING PROVIDER: Brittany Godoy MD Nocturnal polysomnography was attempted for evaluation of sleep physiology in this patient with a history of excessive somnolence and nonrestorative sleep who has multiple medical comorbidities. At the patient's request, testing was performed in a recliner. 6 hours and 1 minute of data were reviewed. There were only 20 minutes of sleep identified. Sleep latency was prolonged at 192 minutes. Rapid eye movement (REM) sleep was not achieved. Sleep architecture was unable to be assessed. Overall sleep efficiency 5.5%. The patient's electrocardiogram showed sinus rhythm with occasional premature ventricular contractions (PVCs). Average heart rate 72 beats per minute. Electroencephalogram (EEG) showed alpha intrusion. No focal events were seen. There were two respiratory events identified. However, the apnea-hypopnea index is of limited value, given the short period of sleep measured. Snoring was also noted with a respiratory-related arousal index of 9. There was some limb activity noted, as well, during the brief interval of sleep. IMPRESSIONS: Are equivocal nocturnal polysomnography with limited sleep time (20 minutes). RECOMMENDATION: Perhaps retesting would be helpful to establish patterns of sleep physiology now that the patient is accustomed to the sleep lab environment.
== END ==
LOC: M SLEEP 19:33
PROVIDERS: ATTEND Internal Medicine Pulmonary Disease
DX: G47.30 Sleep apnea, unspecified (principal)

== ENCOUNTER → 2019-03-23 | Outpatient (REF) | payer MEDICARE ==
[2019-03-23 18:32] LABS: ALBUMIN 3.6 GM/DL (3.2-5.2); ALT/SGPT 29 U/L (12-78); BILIRUBIN,TOTAL 0.8 MG/DL (0.2-1.0); BLOOD UREA NITROGEN 18 MG/DL (7-18); C REACTIVE PROTEIN QUANTITATIV 0.55 MG/DL (0.00-0.30); CALCIUM LEVEL 9.2 MG/DL (8.8-10.2); CARBON DIOXIDE LEVEL 34 MEQ/L (21-32); CHLORIDE LEVEL 98 MEQ/L (98-107); CREATININE FOR GFR 0.98 MG/DL (0.55-1.30); GLOMERULAR FILTRATION RATE > 60.0 (>45); GLUCOSE, FASTING 107 MG/DL (70-100); NT-PRO BNP 196 PG/ML (<125); POTASSIUM SERUM 4.4 MEQ/L (3.5-5.1); RHEUMATOID FACTOR QUANT < 10.0 IU/ML (<15.0); SODIUM LEVEL 137 MEQ/L (136-145); TOTAL PROTEIN 7.6 GM/DL (6.4-8.2)
== END ==
LOC: M LAB REF 17:24
PROVIDERS: ATTEND Internal Medicine Pulmonary Disease
DX: R91.8 Other nonspecific abnormal finding of lung field (principal); G47.30 Sleep apnea, unspecified; Z79.899 Other long term (current) drug therapy

== ENCOUNTER → 2019-07-07 | Outpatient (CLI) | payer MEDICARE ==
--- NOTE | 2019-07-07 16:37 | REPMRS ---
Patient History The patient states she has not had a clinical breast exam in over a year. No known family history of cancer. No Hormone Replacement Therapy 3D TOMOSYNTHESIS WAS PERFORMED. The Tracey Davila lifetime risk for breast cancer is 2.3%. Digital Woman Screen Mammo: July 07, 2019 - Exam #: [id number] Bilateral CC and MLO view(s) were taken. Technologist: Brandy Chauhan, Technologist Prior study comparison: April 14, 2018, bilateral digital woman screen mammo performed at [facility]. April 18, 2017, right breast digital mammo diagnostic unilateral, performed at [facility]. FINDINGS: The breast tissue is heterogeneously dense. This may lower the sensitivity of mammography. There has been no change in the appearance of the mammogram from the prior studies. There is a moderate amount of residual fibroglandular tissue which is fairly symmetric. There is no interval development of dominant mass, areas of architectural distortion, or clustered microcalcification typical of malignancy. Assessment: BI-RADS/ACR category 1 mammogram. Negative Mammogram. Recommendation Routine screening mammogram in 1 year (for women over age 40). This mammogram was interpreted with the aid of an FDA-approved computer-aided dectection system. Electronically Signed By: Chidi Ingram MD 07/07/19 1638
== END ==
LOC: M WHC 14:00
PROVIDERS: ATTEND Obstetrics & Gynecology
DX: Z12.31 Encounter for screening mammogram for malignant neoplasm of breast (principal); Z13.820 Encounter for screening for osteoporosis

== ENCOUNTER 2020-05-02 23:54 | Emergency (ER) | payer MEDICARE ==
[~2020-05-02] VITALS: Ht 154.9 cm; Wt 125.0 kg
[2020-05-03 01:45] LABS: HEMATOCRIT 43.3 % (36.0-47.0); HEMOGLOBIN 13.8 g/dl (12.0-15.5); MEAN CORPUSCULAR HEMOGLOBIN 33.9 pg (27.0-33.0); MEAN CORPUSCULAR HGB CONC 31.9 g/dl (32.0-36.5); MEAN CORPUSCULAR VOLUME 106.4 fl (80.0-96.0); PLATELET COUNT, AUTOMATED 203 10^3/uL (150-450); RED BLOOD COUNT 4.07 10^6/uL (4.00-5.40); WHITE BLOOD COUNT 7.1 10^3/uL (4.0-10.0)
[2020-05-03 01:59] LABS: INR 1.22; PROTHROMBIN TIME 15.7 SECONDS (12.5-14.3)
[2020-05-03 02:02] LABS: D-DIMER QUANT 519.44 ng/ml (<500)
[2020-05-03 02:14] LABS: ALBUMIN 3.5 GM/DL (3.2-5.2); BILIRUBIN,TOTAL 0.8 MG/DL (0.2-1.0); CALCIUM LEVEL 9.3 MG/DL (8.8-10.2); CREATININE FOR GFR 1.17 MG/DL (0.55-1.30); POTASSIUM SERUM 4.4 MEQ/L (3.5-5.1); TOTAL PROTEIN 7.5 GM/DL (6.4-8.2)
--- NOTE | 2020-05-03 03:22 | REPVR ---
PROCEDURE INFORMATION: Exam: US Duplex Right Lower Extremity Veins, Limited Exam date and time: 05/03/2020 3:07 AM Age: 69 years old Clinical indication: Other: Red warm calf; Additional info: R/O dvt TECHNIQUE: Imaging protocol: Real-time Duplex ultrasound of the Right Lower Extremity with 2-D castro scale, color Doppler flow and spectral waveform analysis with image documentation. Limited exam was focused on the right lower extremity veins. COMPARISON: US Duplex, Ext,LOWER veins,unilat 12/29/2013 7:59 PM FINDINGS: Right deep veins: Unremarkable. The common femoral, femoral, proximal profunda femoral and popliteal veins are patent without thrombus. Normal Doppler waveforms. Normal compressibility and/or augmentation response. Right superficial veins: Unremarkable. Saphenofemoral junction is patent without thrombus. Soft tissues: Unremarkable. IMPRESSION: Negative right lower extremity venous duplex exam without evidence of deep venous thrombosis. Electronically signed by: Jake Mejía On 05/03/2020 03:21:57 AM
[2020-05-03] MEDS ORDERED: CLINDAMYCIN 900 MG in IV 1 EA IV ONE (04:00)
[2020-05-03] MEDS ORDERED: ACETAMINOPHEN 325 MG TAB PO ONE (04:00)
[2020-05-03] MEDS ORDERED: methylPREDNISolone 125MG 2ML VIAL IV ONE (04:00)
[2020-05-03 05:30] VITALS: BP 139/93
[2020-05-03] MEDS ORDERED: CLIN150C14 PO (06:20)
== END 2020-05-03 06:43 | disposition home or self-care (01) ==
LOC: M ED 23:54
DX: L03.116 Cellulitis of left lower limb (principal); I10 Essential (primary) hypertension; J44.9 Chronic obstructive pulmonary disease, unspecified; Z79.01 Long term (current) use of anticoagulants; Z79.899 Other long term (current) drug therapy
CPT/HCPCS: 36415; 80053; 85027; 85379; 85610; 93971; 96365; 96375; 99285; J2930

== ENCOUNTER → 2021-01-06 | Outpatient (REF) | payer MEDICARE ==
[~2021-01-06] MED LIST changes: +CLIN150C15 PO; -LISI-542 PO; +LISI-898 PO
== END ==
LOC: M SFHCPLAZ 14:36
DX: I95.9 Hypotension, unspecified (principal)

== ENCOUNTER → 2021-01-06 | Outpatient (CLI) | payer MEDICARE ==
[~2021-01-06] MED LIST changes: -CLIN150C15 PO; +CLIN150C17 PO
[2021-01-06 18:14] LABS: CALCIUM LEVEL 9.3 MG/DL (8.8-10.2); CHOLESTEROL RISK RATIO 2.937 (<5); CREATININE FOR GFR 1.34 MG/DL (0.55-1.30); GLOMERULAR FILTRATION RATE 41.7 (>45); POTASSIUM SERUM 4.3 MEQ/L (3.5-5.1)
== END ==
LOC: M PLALAB 14:44
PROVIDERS: ATTEND Student in an Organized Health Care Education/Training Program
DX: E78.5 Hyperlipidemia, unspecified (principal); I10 Essential (primary) hypertension
CPT/HCPCS: 36415; 80048; 80061; G0463

== ENCOUNTER → 2021-01-06 | Outpatient (CLI) | payer MEDICARE ==
[~2021-01-06] MED LIST changes: +CLIN150C15 PO; -CLIN150C17 PO
[2021-01-06 18:20] LABS: BASO # 0.1 10^3/uL (0.0-0.2); EOS # 0.1 10^3/uL (0.0-0.5); EOS % 1.5 % (0.0-3.0); HEMATOCRIT 43.6 % (36.0-47.0); HEMOGLOBIN 14.1 g/dl (12.0-15.5); LYMPH # 1.6 10^3/uL (1.5-5.0); LYMPH % 23.4 % (24.0-44.0); MEAN CORPUSCULAR HEMOGLOBIN 35.1 pg (27.0-33.0); MEAN CORPUSCULAR HGB CONC 32.3 g/dl (32.0-36.5); MEAN CORPUSCULAR VOLUME 108.5 fl (80.0-96.0); MONO # 0.6 10^3/uL (0.0-0.8); MONO % 8.7 % (2.0-8.0); NEUTROPHILS # 4.5 10^3/uL (1.5-8.5); NEUTROPHILS % 64.8 % (36.0-66.0); PLATELET COUNT, AUTOMATED 230 10^3/uL (150-450); RED BLOOD COUNT 4.02 10^6/uL (4.00-5.40); WHITE BLOOD COUNT 6.9 10^3/uL (4.0-10.0)
== END ==
LOC: M PLALAB 14:46
PROVIDERS: ATTEND Student in an Organized Health Care Education/Training Program
DX: I95.9 Hypotension, unspecified (principal)

== ENCOUNTER → 2021-01-09 | Outpatient (CLI) | payer MEDICARE ==
[2021-01-09 15:30] LABS: CALCIUM LEVEL 9.1 MG/DL (8.8-10.2); CREATININE FOR GFR 1.17 MG/DL (0.55-1.30); GLOMERULAR FILTRATION RATE 48.8 (>45); POTASSIUM SERUM 4.6 MEQ/L (3.5-5.1)
[2021-01-09 15:47] LABS: HEMOGLOBIN A1c 13.4 %
== END ==
LOC: M PLALAB 13:34
PROVIDERS: ATTEND Student in an Organized Health Care Education/Training Program
DX: R73.01 Impaired fasting glucose (principal); R79.89 Other specified abnormal findings of blood chemistry

== ENCOUNTER → 2021-05-11 | Outpatient (CLI) | payer MEDICARE ==
[~2021-05-11] MED LIST changes: -CLIN150C15 PO; +CLIN150C17 PO; -LISI-898 PO; +LISI5TAB11 PO
[2021-05-11 13:30] LABS: HEMOGLOBIN A1c 7.4 %
== END ==
LOC: M PLALAB 11:01
PROVIDERS: ATTEND Student in an Organized Health Care Education/Training Program
DX: E11.9 Type 2 diabetes mellitus without complications (principal)

== ENCOUNTER → 2021-07-12 | Outpatient (CLI) | payer MEDICARE ==
[2021-07-12 10:54] LABS: CALCIUM LEVEL 8.8 MG/DL (8.8-10.2); CHOLESTEROL RISK RATIO 2.725 (<5); CREATININE FOR GFR 1.06 MG/DL (0.55-1.30); GLOMERULAR FILTRATION RATE 54.7 (>45); POTASSIUM SERUM 4.7 MEQ/L (3.5-5.1)
== END ==
LOC: M PLALAB 08:35
PROVIDERS: ATTEND Student in an Organized Health Care Education/Training Program
DX: E78.2 Mixed hyperlipidemia (principal); I10 Essential (primary) hypertension; E11.9 Type 2 diabetes mellitus without complications

== ENCOUNTER 2022-05-13 19:27 | Inpatient (IN) | payer MEDICARE ==
[~2022-05-13] VITALS: Ht 152.4 cm; Wt 116.2 kg
[2022-05-13] MEDS ORDERED: PROPARACAINE 0.5% OPHTH SOL 15ML OD ONE (19:55)
[2022-05-13] MEDS ORDERED: ISOVUE-370 76% 100ML VIAL As Ordered ONE (20:45)
[2022-05-13 20:46] LABS: BASO % 0.6 % (0.0-1.0); EOS # 0.1 10^3/uL (0.0-0.5); EOS % 0.9 % (0.0-3.0); HEMATOCRIT 45.7 % (36.0-47.0); HEMOGLOBIN 14.4 g/dl (12.0-15.5); LYMPH # 1.1 10^3/uL (1.5-5.0); LYMPH % 16.9 % (24.0-44.0); MEAN CORPUSCULAR HGB CONC 31.5 g/dl (32.0-36.5); MEAN CORPUSCULAR VOLUME 107.8 fl (80.0-96.0); MONO # 0.5 10^3/uL (0.0-0.8); NEUTROPHILS % 74.5 % (36.0-66.0); PLATELET COUNT, AUTOMATED 173 10^3/uL (150-450); RED BLOOD COUNT 4.24 10^6/uL (4.00-5.40); WHITE BLOOD COUNT 6.7 10^3/uL (4.0-10.0)
[2022-05-13 20:58] LABS: INR 1.83; PROTHROMBIN TIME 21.5 SECONDS (12.5-14.5)
[2022-05-13 20:59] LABS: PARTIAL THROMBOPLASTIN TIME 36.4 SECONDS (24.8-34.2)
[2022-05-13 21:12] LABS: CK-MB VALUE MASS 1.4 NG/ML (<3.6)
[2022-05-13 21:13] LABS: ALBUMIN 3.6 G/DL (3.2-5.2); BILIRUBIN,TOTAL 2.5 MG/DL (0.3-1.2); CALCIUM LEVEL 8.8 MG/DL (8.3-10.6); CREATININE FOR GFR 1.14 MG/DL (0.55-1.30); GLOMERULAR FILTRATION RATE 50.2 (>39); MB/CK RELATIVE INDEX 1.52 (< OR =4); TOTAL PROTEIN 7.1 G/DL (5.7-8.2)
[2022-05-13 21:15] LABS: THYROID STIMULATING HORMONE 20.336 uIU/ML (0.55-4.78)
[2022-05-13 21:24] LABS: ERYTHROCYTE SEDIMENTATION RATE 9 mm/hr (0-30)
[2022-05-13 21:43] LABS: C REACTIVE PROTEIN QUANTITATIV 2.1 MG/DL (<1.0)
[2022-05-13] MEDS ORDERED: METF500T13 PO (23:38)
[2022-05-13] MEDS ORDERED: BASA100I INJ (23:38)
[2022-05-13] MEDS ORDERED: HOME MED LIST COMPLETE! XX SCH (23:40)
[2022-05-14] MEDS ORDERED: FUROSEMIDE 40MG/4ML VIAL IV ONE
[2022-05-14] MEDS ORDERED: GLUCAGON INJ 1MG VIAL SC PRN (02:30)
[2022-05-14] MEDS ORDERED: GLUCOSE 4GM CHEW TABLET PO PRN (02:30)
[2022-05-14] MEDS ORDERED: DEXTROSE 50% 50ML SYRINGE IV PRN (02:30)
[2022-05-14 06:46] LABS: BASO % 0.5 % (0.0-1.0); EOS # 0.1 10^3/uL (0.0-0.5); EOS % 1.2 % (0.0-3.0); HEMATOCRIT 41.2 % (36.0-47.0); HEMOGLOBIN 12.7 g/dl (12.0-15.5); LYMPH # 1.2 10^3/uL (1.5-5.0); LYMPH % 18.5 % (24.0-44.0); MEAN CORPUSCULAR HEMOGLOBIN 33.6 pg (27.0-33.0); MEAN CORPUSCULAR HGB CONC 30.8 g/dl (32.0-36.5); MONO # 0.5 10^3/uL (0.0-0.8); NEUTROPHILS # 4.8 10^3/uL (1.5-8.5); NEUTROPHILS % 71.5 % (36.0-66.0); PLATELET COUNT, AUTOMATED 148 10^3/uL (150-450); RED BLOOD COUNT 3.78 10^6/uL (4.00-5.40); WHITE BLOOD COUNT 6.7 10^3/uL (4.0-10.0)
[2022-05-14 07:05] LABS: MAGNESIUM LEVEL 1.4 MG/DL (1.8-2.4)
[2022-05-14 07:12] LABS: CALCIUM LEVEL 8.6 MG/DL (8.3-10.6); CHOLESTEROL RISK RATIO 2.27 (<5); CREATININE FOR GFR 1.13 MG/DL (0.55-1.30); FREE T4 0.9 NG/DL (0.89-1.76); GLOMERULAR FILTRATION RATE 50.7 (>39); HDL CHOLESTEROL 29.9 MG/DL (>40); LDL CHOLESTEROL 23.5 MG/DL (<100); POTASSIUM SERUM 3.7 MMOL/L (3.5-5.1)
[2022-05-14] MEDS ORDERED: FUROSEMIDE 40MG/4ML VIAL IV SCH (09:00)
[2022-05-14] MEDS ORDERED: METOPROLOL TART 12.5 MG PER 1/2 TAB PO SCH (09:00)
[2022-05-14] MEDS: INSULIN LISPRO (NovoLOG) PER UNIT SC SCH ×4 (09:29→21:00)
[2022-05-14] MEDS: APIXABAN 5 MG TAB (ELIQUIS) PO SCH ×2 (09:58→21:27)
[2022-05-14] MEDS: LEVEMIR (INSULIN DETEMIR) 1 UNITS/0.01ML SC SCH (09:59)
[2022-05-14] MEDS: FUROSEMIDE 40MG/4ML VIAL IV SCH ×2 (09:59→10:09)
[2022-05-14] MEDS: LEVOTHYROXINE 50MCG TABLET (0.05MG) PO SCH (12:07)
[2022-05-14] MEDS: NYSTATIN CREAM 15GM TOP SCH ×2 (13:15→21:00)
[2022-05-14] MEDS: CEPHALEXIN 500 MG CAP PO SCH ×2 (17:40→21:27)
[2022-05-14 23:30] VITALS: BP 105/58
[2022-05-14] MEDS: ATORVASTATIN 20 MG TAB PO SCH (23:35)
[2022-05-15] VITALS (17 sets, daily range): BP systolic 73–115; BP diastolic 52–74
[2022-05-15] MEDS: LEVOTHYROXINE 50MCG TABLET (0.05MG) PO SCH (06:05)
[2022-05-15] MEDS: INSULIN LISPRO (NovoLOG) PER UNIT SC SCH ×4 (07:30→20:54)
[2022-05-15 08:18] LABS: BASO % 0.5 % (0.0-1.0); EOS # 0.1 10^3/uL (0.0-0.5); LYMPH % 16.5 % (24.0-44.0); MEAN CORPUSCULAR HEMOGLOBIN 33.4 pg (27.0-33.0); MEAN CORPUSCULAR HGB CONC 30.8 g/dl (32.0-36.5); MEAN CORPUSCULAR VOLUME 108.6 fl (80.0-96.0); MONO # 0.5 10^3/uL (0.0-0.8); MONO % 7.8 % (2.0-8.0); NEUTROPHILS # 4.4 10^3/uL (1.5-8.5); PLATELET COUNT, AUTOMATED 134 10^3/uL (150-450); RED BLOOD COUNT 3.59 10^6/uL (4.00-5.40)
[2022-05-15] MEDS: FUROSEMIDE 40MG/4ML VIAL IV SCH (08:19)
[2022-05-15] MEDS: ACETAMINOPHEN TAB 650MG DOSE (2X325MG) PO PRN (08:28)
[2022-05-15] MEDS: CEPHALEXIN 500 MG CAP PO SCH ×3 (08:28→21:02)
[2022-05-15] MEDS: APIXABAN 5 MG TAB (ELIQUIS) PO SCH ×2 (08:28→21:02)
[2022-05-15] MEDS: LEVEMIR (INSULIN DETEMIR) 1 UNITS/0.01ML SC SCH (08:28)
[2022-05-15] MEDS: NYSTATIN CREAM 15GM TOP SCH ×2 (08:28→21:02)
[2022-05-15 08:43] LABS: ALKALINE PHOSPHATASE 63 U/L (46-116); ALT/SGPT 13 U/L (7.0-40); AST/SGOT 25 U/L (<34); BILIRUBIN,TOTAL 2.6 MG/DL (0.3-1.2); BLOOD UREA NITROGEN 18 MG/DL (9-23); CALCIUM LEVEL 8.3 MG/DL (8.3-10.6); CARBON DIOXIDE LEVEL 30 MMOL/L (20-31); CHLORIDE LEVEL 105 MMOL/L (98-107); CREATININE FOR GFR 0.93 MG/DL (0.55-1.30); GLOMERULAR FILTRATION RATE > 60.0 (>39); GLUCOSE, FASTING 99 MG/DL (74-106); SODIUM LEVEL 143 MMOL/L (136-145)
[2022-05-15] MEDS ORDERED: LR 500 ML IV ONE (10:20)
[2022-05-15] MEDS: MAGNESIUM OXIDE 400MG TAB (MAG-OX) PO SCH ×3 (10:25→21:02)
[2022-05-15] MEDS ORDERED: CYCLOPENTOLATE 1% OPHTH SOLN 2ML BTL OU ONE (13:25)
[2022-05-15] MEDS ORDERED: TROPICAMIDE 1% OPHTH SOLN 15ML OU ONE (13:25)
[2022-05-15] MEDS ORDERED: PHENYLEPHRINE 2.5% OPHTH SOL 2ML OU SCH (13:25)
[2022-05-15] MEDS: MIDODRINE 5 MG TAB PO SCH (15:11)
[2022-05-15 17:58] LABS: BLOOD UREA NITROGEN 19 MG/DL (9-23); CALCIUM LEVEL 7.9 MG/DL (8.3-10.6); CARBON DIOXIDE LEVEL 31 MMOL/L (20-31); CHLORIDE LEVEL 104 MMOL/L (98-107); CREATININE FOR GFR 0.94 MG/DL (0.55-1.30); GLOMERULAR FILTRATION RATE > 60.0 (>39); GLUCOSE, FASTING 125 MG/DL (74-106); POTASSIUM SERUM 4.1 MMOL/L (3.5-5.1); SODIUM LEVEL 142 MMOL/L (136-145)
[2022-05-15] MEDS: ATORVASTATIN 20 MG TAB PO SCH (21:01)
[2022-05-16] VITALS (8 sets, daily range): BP systolic 87–107; BP diastolic 57–72
[2022-05-16 04:41] LABS: BASO % 0.5 % (0.0-1.0); EOS # 0.1 10^3/uL (0.0-0.5); HEMATOCRIT 39.3 % (36.0-47.0); HEMOGLOBIN 11.8 g/dl (12.0-15.5); LYMPH # 1.3 10^3/uL (1.5-5.0); LYMPH % 23.3 % (24.0-44.0); MEAN CORPUSCULAR HEMOGLOBIN 33.1 pg (27.0-33.0); MEAN CORPUSCULAR VOLUME 110.1 fl (80.0-96.0); MONO # 0.5 10^3/uL (0.0-0.8); MONO % 8.4 % (2.0-8.0); NEUTROPHILS # 3.7 10^3/uL (1.5-8.5); NEUTROPHILS % 65.6 % (36.0-66.0); PLATELET COUNT, AUTOMATED 135 10^3/uL (150-450); RED BLOOD COUNT 3.57 10^6/uL (4.00-5.40); WHITE BLOOD COUNT 5.6 10^3/uL (4.0-10.0)
[2022-05-16 05:18] LABS: ALBUMIN 2.8 G/DL (3.2-5.2); ALKALINE PHOSPHATASE 63 U/L (46-116); ALT/SGPT 14 U/L (7.0-40); AST/SGOT 19 U/L (<34); BLOOD UREA NITROGEN 19 MG/DL (9-23); CALCIUM LEVEL 8.3 MG/DL (8.3-10.6); CARBON DIOXIDE LEVEL 32 MMOL/L (20-31); CHLORIDE LEVEL 104 MMOL/L (98-107); CREATININE FOR GFR 0.91 MG/DL (0.55-1.30); GLOMERULAR FILTRATION RATE > 60.0 (>39); GLUCOSE, FASTING 107 MG/DL (74-106); POTASSIUM SERUM 4.2 MMOL/L (3.5-5.1); SODIUM LEVEL 142 MMOL/L (136-145); TOTAL PROTEIN 5.9 G/DL (5.7-8.2)
[2022-05-16] MEDS: LEVOTHYROXINE 50MCG TABLET (0.05MG) PO SCH (05:59)
[2022-05-16] MEDS ORDERED: LEVOTHYROXINE 75MCG TABLET (0.075MG) PO SCH (06:00)
[2022-05-16] MEDS: SYMBICORT 160/4.5MCG INHALER 6GM INH SCH ×2 (08:00→20:04)
[2022-05-16] MEDS: LEVEMIR (INSULIN DETEMIR) 1 UNITS/0.01ML SC SCH (09:10)
[2022-05-16] MEDS: INSULIN LISPRO (NovoLOG) PER UNIT SC SCH ×4 (09:10→20:40)
[2022-05-16] MEDS: MIDODRINE 5 MG TAB PO SCH ×3 (09:11→16:20)
[2022-05-16] MEDS: APIXABAN 5 MG TAB (ELIQUIS) PO SCH ×2 (09:11→20:34)
[2022-05-16] MEDS: ASPIRIN 81MG ENTERIC TABLET PO SCH (09:11)
[2022-05-16] MEDS: MAGNESIUM OXIDE 400MG TAB (MAG-OX) PO SCH ×3 (09:11→20:34)
[2022-05-16] MEDS: NYSTATIN CREAM 15GM TOP SCH ×2 (09:11→20:39)
[2022-05-16] MEDS: CEPHALEXIN 500 MG CAP PO SCH ×3 (09:11→20:34)
[2022-05-16] MEDS: BENZONATATE 100MG CAPSULE PO PRN ×2 (12:02→20:36)
[2022-05-16] MEDS: FUROSEMIDE 40MG/4ML VIAL IV SCH (13:31)
[2022-05-16] MEDS: IPRATROPIUM 0.5MG/ALBUTEROL 2.5MG INH SOL UD 3ML (DUONEB) NEB SCH ×2 (13:47→20:00)
[2022-05-16] MEDS: ATORVASTATIN 20 MG TAB PO SCH (20:34)
[2022-05-17] VITALS (8 sets, daily range): BP systolic 74–106; BP diastolic 52–69
[2022-05-17] MEDS: IPRATROPIUM 0.5MG/ALBUTEROL 2.5MG INH SOL UD 3ML (DUONEB) NEB SCH ×4 (00:42→19:53)
[2022-05-17 04:34] LABS: BASO % 0.7 % (0.0-1.0); EOS # 0.1 10^3/uL (0.0-0.5); EOS % 1.5 % (0.0-3.0); HEMATOCRIT 38.6 % (36.0-47.0); LYMPH # 1.1 10^3/uL (1.5-5.0); LYMPH % 17.2 % (24.0-44.0); MEAN CORPUSCULAR HEMOGLOBIN 34.1 pg (27.0-33.0); MEAN CORPUSCULAR HGB CONC 31.1 g/dl (32.0-36.5); MEAN CORPUSCULAR VOLUME 109.7 fl (80.0-96.0); MONO # 0.5 10^3/uL (0.0-0.8); MONO % 8.5 % (2.0-8.0); NEUTROPHILS # 4.4 10^3/uL (1.5-8.5); NEUTROPHILS % 71.8 % (36.0-66.0); PLATELET COUNT, AUTOMATED 133 10^3/uL (150-450); RED BLOOD COUNT 3.52 10^6/uL (4.00-5.40); WHITE BLOOD COUNT 6.1 10^3/uL (4.0-10.0)
[2022-05-17] MEDS: LEVOTHYROXINE 50MCG TABLET (0.05MG) PO SCH (05:17)
[2022-05-17 05:32] LABS: ALBUMIN 2.9 G/DL (3.2-5.2); ALKALINE PHOSPHATASE 68 U/L (46-116); ALT/SGPT 16 U/L (7.0-40); AST/SGOT 25 U/L (<34); BILIRUBIN,TOTAL 1.6 MG/DL (0.3-1.2); BLOOD UREA NITROGEN 20 MG/DL (9-23); CALCIUM LEVEL 8.2 MG/DL (8.3-10.6); CARBON DIOXIDE LEVEL 33 MMOL/L (20-31); CHLORIDE LEVEL 102 MMOL/L (98-107); CREATININE FOR GFR 0.87 MG/DL (0.55-1.30); GLOMERULAR FILTRATION RATE > 60.0 (>39); GLUCOSE, FASTING 115 MG/DL (74-106); POTASSIUM SERUM 4.1 MMOL/L (3.5-5.1); SODIUM LEVEL 142 MMOL/L (136-145); TOTAL PROTEIN 6.3 G/DL (5.7-8.2)
[2022-05-17] MEDS: INSULIN LISPRO (NovoLOG) PER UNIT SC SCH ×4 (07:30→20:52)
[2022-05-17] MEDS ORDERED: TIOTROPIUM INHALER/CAPSULE (SPIRIVA) INH SCH (08:00)
[2022-05-17] MEDS: SYMBICORT 160/4.5MCG INHALER 6GM INH SCH ×2 (08:07→19:53)
[2022-05-17] MEDS: FUROSEMIDE 40MG/4ML VIAL IV SCH (08:14)
[2022-05-17] MEDS: ASPIRIN 81MG ENTERIC TABLET PO SCH (08:15)
[2022-05-17] MEDS: LEVEMIR (INSULIN DETEMIR) 1 UNITS/0.01ML SC SCH (08:15)
[2022-05-17] MEDS: APIXABAN 5 MG TAB (ELIQUIS) PO SCH ×2 (08:15→20:30)
[2022-05-17] MEDS: MIDODRINE 5 MG TAB PO SCH ×3 (08:15→17:21)
[2022-05-17] MEDS: CEPHALEXIN 500 MG CAP PO SCH ×3 (08:15→20:31)
[2022-05-17] MEDS: NYSTATIN CREAM 15GM TOP SCH ×2 (08:30→21:00)
[2022-05-17] MEDS: BENZONATATE 100MG CAPSULE PO PRN ×2 (12:23→20:22)
[2022-05-17] MEDS: guaiFENesin SYRUP 200MG 10ML UDC PO PRN (20:21)
[2022-05-17] MEDS: ATORVASTATIN 20 MG TAB PO SCH (20:31)
[2022-05-18] MEDS: IPRATROPIUM 0.5MG/ALBUTEROL 2.5MG INH SOL UD 3ML (DUONEB) NEB SCH ×6 (02:41→23:24)
[2022-05-18 04:14] VITALS: BP 95/64
[2022-05-18 04:44] LABS: BASO % 0.5 % (0.0-1.0); EOS # 0.1 10^3/uL (0.0-0.5); HEMATOCRIT 38.1 % (36.0-47.0); HEMOGLOBIN 11.5 g/dl (12.0-15.5); LYMPH # 1.2 10^3/uL (1.5-5.0); LYMPH % 20.2 % (24.0-44.0); MEAN CORPUSCULAR HEMOGLOBIN 33.3 pg (27.0-33.0); MEAN CORPUSCULAR HGB CONC 30.2 g/dl (32.0-36.5); MEAN CORPUSCULAR VOLUME 110.4 fl (80.0-96.0); MONO # 0.6 10^3/uL (0.0-0.8); MONO % 9.5 % (2.0-8.0); NEUTROPHILS # 4.1 10^3/uL (1.5-8.5); NEUTROPHILS % 67.5 % (36.0-66.0); PLATELET COUNT, AUTOMATED 137 10^3/uL (150-450); RED BLOOD COUNT 3.45 10^6/uL (4.00-5.40)
[2022-05-18] MEDS: LEVOTHYROXINE 50MCG TABLET (0.05MG) PO SCH (05:03)
[2022-05-18 05:14] LABS: ALBUMIN 2.9 G/DL (3.2-5.2); ALKALINE PHOSPHATASE 69 U/L (46-116); ALT/SGPT 17 U/L (7.0-40); AST/SGOT 26 U/L (<34); BILIRUBIN,TOTAL 1.7 MG/DL (0.3-1.2); BLOOD UREA NITROGEN 20 MG/DL (9-23); CALCIUM LEVEL 7.9 MG/DL (8.3-10.6); CARBON DIOXIDE LEVEL 36 MMOL/L (20-31); CHLORIDE LEVEL 101 MMOL/L (98-107); CREATININE FOR GFR 0.89 MG/DL (0.55-1.30); GLOMERULAR FILTRATION RATE > 60.0 (>39); GLUCOSE, FASTING 110 MG/DL (74-106); POTASSIUM SERUM 4.3 MMOL/L (3.5-5.1); SODIUM LEVEL 140 MMOL/L (136-145); TOTAL PROTEIN 6.3 G/DL (5.7-8.2)
[2022-05-18] MEDS: guaiFENesin SYRUP 200MG 10ML UDC PO PRN ×3 (06:30→21:06)
[2022-05-18] MEDS: SYMBICORT 160/4.5MCG INHALER 6GM INH SCH ×2 (07:26→20:34)
[2022-05-18] MEDS: INSULIN LISPRO (NovoLOG) PER UNIT SC SCH ×4 (07:30→21:00)
[2022-05-18 08:00] VITALS: BP 106/60
[2022-05-18] MEDS: APIXABAN 5 MG TAB (ELIQUIS) PO SCH ×2 (09:23→21:05)
[2022-05-18] MEDS: NYSTATIN CREAM 15GM TOP SCH ×2 (09:23→21:05)
[2022-05-18] MEDS: FUROSEMIDE 40MG/4ML VIAL IV SCH (09:23)
[2022-05-18] MEDS: CEPHALEXIN 500 MG CAP PO SCH (09:23)
[2022-05-18] MEDS: ASPIRIN 81MG ENTERIC TABLET PO SCH (09:24)
[2022-05-18] MEDS: LEVEMIR (INSULIN DETEMIR) 1 UNITS/0.01ML SC SCH (09:24)
[2022-05-18] MEDS: MIDODRINE 5 MG TAB PO SCH ×3 (09:26→15:51)
[2022-05-18] MEDS: methylPREDNISolone 40MG 1ML VIAL IV SCH ×2 (10:50→17:50)
[2022-05-18 11:21] LABS: ABG BASE EXCESS 9.7 (-2.0-2.0); ABG HCO3 35.8 MEQ/L (22.0-26.0); ABG O2 SATURATION 93.9 % (95.0-99.0); ABG PARTIAL PRESSURE CO2 54.1 mmHg (35.0-45.0); ABG PARTIAL PRESSURE O2 67.1 mmHg (75.0-100.0); ABG STANDARD HCO3 33.4 MEQ/L (22.0-26.0); ABG TOTAL CO2 37.4 MEQ/L (23.0-31.0); ABG pH (ARTERIAL) 7.438 UNITS (7.350-7.450)
[2022-05-18 12:00] VITALS: BP 106/62
[2022-05-18 12:36] LABS: MAGNESIUM LEVEL 1.8 MG/DL (1.8-2.4)
[2022-05-18] MEDS: cefTRIAXone SOD 1 GM in D5W MINI-BAG PLUS 50 ML IV SCH (12:38)
[2022-05-18 16:00] VITALS: BP 106/65
[2022-05-18] MEDS: MAGNESIUM OXIDE 400MG TAB (MAG-OX) PO SCH ×2 (16:18→21:05)
[2022-05-18 20:00] VITALS: BP 106/63
[2022-05-18] MEDS: ATORVASTATIN 20 MG TAB PO SCH (21:05)
[2022-05-19] VITALS (8 sets, daily range): BP systolic 86–111; BP diastolic 55–74
[2022-05-19] MEDS: methylPREDNISolone 40MG 1ML VIAL IV SCH ×3 (01:52→17:52)
[2022-05-19] MEDS: IPRATROPIUM 0.5MG/ALBUTEROL 2.5MG INH SOL UD 3ML (DUONEB) NEB SCH ×6 (03:09→23:02)
[2022-05-19 05:53] LABS: BASO % 0.1 % (0.0-1.0); HEMATOCRIT 37.8 % (36.0-47.0); HEMOGLOBIN 11.8 g/dl (12.0-15.5); LYMPH # 0.3 10^3/uL (1.5-5.0); MEAN CORPUSCULAR HGB CONC 31.2 g/dl (32.0-36.5); MEAN CORPUSCULAR VOLUME 108.9 fl (80.0-96.0); MONO # 0.2 10^3/uL (0.0-0.8); MONO % 2.2 % (2.0-8.0); NEUTROPHILS # 6.9 10^3/uL (1.5-8.5); NEUTROPHILS % 93.4 % (36.0-66.0); PLATELET COUNT, AUTOMATED 151 10^3/uL (150-450); RED BLOOD COUNT 3.47 10^6/uL (4.00-5.40); WHITE BLOOD COUNT 7.3 10^3/uL (4.0-10.0)
[2022-05-19] MEDS: LEVOTHYROXINE 50MCG TABLET (0.05MG) PO SCH (05:56)
[2022-05-19] MEDS: guaiFENesin SYRUP 200MG 10ML UDC PO PRN ×2 (06:03→15:54)
[2022-05-19 06:29] LABS: ALBUMIN 3.1 G/DL (3.2-5.2); ALKALINE PHOSPHATASE 76 U/L (46-116); ALT/SGPT 23 U/L (7.0-40); AST/SGOT 31 U/L (<34); BILIRUBIN,TOTAL 1.3 MG/DL (0.3-1.2); BLOOD UREA NITROGEN 21 MG/DL (9-23); CALCIUM LEVEL 8.9 MG/DL (8.3-10.6); CARBON DIOXIDE LEVEL 34 MMOL/L (20-31); CHLORIDE LEVEL 98 MMOL/L (98-107); CREATININE FOR GFR 0.74 MG/DL (0.55-1.30); GLOMERULAR FILTRATION RATE > 60.0 (>39); GLUCOSE, FASTING 214 MG/DL (74-106); POTASSIUM SERUM 4.5 MMOL/L (3.5-5.1); SODIUM LEVEL 139 MMOL/L (136-145); TOTAL PROTEIN 6.7 G/DL (5.7-8.2)
[2022-05-19] MEDS: LEVEMIR (INSULIN DETEMIR) 1 UNITS/0.01ML SC SCH (08:12)
[2022-05-19] MEDS: INSULIN LISPRO (NovoLOG) PER UNIT SC SCH ×4 (08:13→20:08)
[2022-05-19] MEDS: ASPIRIN 81MG ENTERIC TABLET PO SCH (08:13)
[2022-05-19] MEDS: APIXABAN 5 MG TAB (ELIQUIS) PO SCH ×2 (08:13→20:11)
[2022-05-19] MEDS: MAGNESIUM OXIDE 400MG TAB (MAG-OX) PO SCH ×3 (08:14→20:11)
[2022-05-19] MEDS: MIDODRINE 5 MG TAB PO SCH ×3 (08:14→15:54)
[2022-05-19] MEDS: FUROSEMIDE 40MG/4ML VIAL IV SCH (08:16)
[2022-05-19 08:30] LABS: ABG pH (ARTERIAL) 7.395 UNITS (7.350-7.450)
[2022-05-19 08:31] LABS: ABG BASE EXCESS 6.1 (-2.0-2.0); ABG HCO3 32.4 MEQ/L (22.0-26.0); ABG PARTIAL PRESSURE CO2 54.1 mmHg (35.0-45.0); ABG PARTIAL PRESSURE O2 81.1 mmHg (75.0-100.0); ABG STANDARD HCO3 29.9 MEQ/L (22.0-26.0)
[2022-05-19] MEDS: SYMBICORT 160/4.5MCG INHALER 6GM INH SCH ×2 (08:43→20:24)
[2022-05-19] MEDS: AZITHROMYCIN 250MG TABLET PO SCH ×2 (09:00→12:09)
[2022-05-19] MEDS: NYSTATIN CREAM 15GM TOP SCH (09:00)
[2022-05-19] MEDS: cefTRIAXone SOD 1 GM in D5W MINI-BAG PLUS 50 ML IV SCH (12:08)
[2022-05-19] MEDS: NYSTATIN 100,000 UNITS/GM TOPICAL PWD 15GM TOP SCH (14:55)
[2022-05-19] MEDS ORDERED: FUROSEMIDE 40MG/4ML VIAL IV SCH (17:00)
[2022-05-19] MEDS: ATORVASTATIN 20 MG TAB PO SCH (20:11)
[2022-05-20] VITALS: BP 98/56
[2022-05-20] MEDS: guaiFENesin SYRUP 200MG 10ML UDC PO PRN ×2 (00:02→08:39)
[2022-05-20] MEDS: methylPREDNISolone 40MG 1ML VIAL IV SCH ×3 (02:08→17:16)
[2022-05-20 04:00] VITALS: BP 103/70
[2022-05-20] MEDS: IPRATROPIUM 0.5MG/ALBUTEROL 2.5MG INH SOL UD 3ML (DUONEB) NEB SCH ×5 (04:10→19:23)
[2022-05-20] MEDS: LEVOTHYROXINE 50MCG TABLET (0.05MG) PO SCH (05:33)
[2022-05-20 05:55] LABS: LYMPH # 0.5 10^3/uL (1.5-5.0); LYMPH % 5.5 % (24.0-44.0); MEAN CORPUSCULAR HEMOGLOBIN 33.6 pg (27.0-33.0); MONO # 0.4 10^3/uL (0.0-0.8); MONO % 3.9 % (2.0-8.0); NEUTROPHILS # 8.1 10^3/uL (1.5-8.5); NEUTROPHILS % 90.4 % (36.0-66.0); PLATELET COUNT, AUTOMATED 170 10^3/uL (150-450); RED BLOOD COUNT 3.57 10^6/uL (4.00-5.40)
[2022-05-20 06:16] LABS: MAGNESIUM LEVEL 2.4 MG/DL (1.8-2.4)
[2022-05-20 06:20] LABS: ALBUMIN 3.3 G/DL (3.2-5.2); CALCIUM LEVEL 8.9 MG/DL (8.3-10.6); CREATININE FOR GFR 1.01 MG/DL (0.55-1.30); GLOMERULAR FILTRATION RATE 57.7 (>39); POTASSIUM SERUM 5.5 MMOL/L (3.5-5.1); TOTAL PROTEIN 6.9 G/DL (5.7-8.2)
[2022-05-20] MEDS: SYMBICORT 160/4.5MCG INHALER 6GM INH SCH ×2 (07:15→19:23)
[2022-05-20 07:34] VITALS: BP 106/74
[2022-05-20] MEDS: APIXABAN 5 MG TAB (ELIQUIS) PO SCH ×2 (08:26→20:42)
[2022-05-20] MEDS: ASPIRIN 81MG ENTERIC TABLET PO SCH (08:26)
[2022-05-20] MEDS: AZITHROMYCIN 250MG TABLET PO SCH (08:26)
[2022-05-20] MEDS: MIDODRINE 5 MG TAB PO SCH ×3 (08:26→17:15)
[2022-05-20] MEDS: MAGNESIUM OXIDE 400MG TAB (MAG-OX) PO SCH ×3 (08:26→20:42)
[2022-05-20] MEDS: INSULIN LISPRO (NovoLOG) PER UNIT SC SCH ×4 (08:27→20:47)
[2022-05-20] MEDS ORDERED: PATIROMER SORBITEX CALCIUM 8.4 GM POWDER PACKET (VELTASSA) PO ONE (09:00)
[2022-05-20] MEDS ORDERED: LEVEMIR (INSULIN DETEMIR) 1 UNITS/0.01ML SC SCH (09:00)
[2022-05-20] MEDS ORDERED: MIRALAX *UNIT DOSE* 17GM PACKET PO SCH (09:00)
[2022-05-20] MEDS ORDERED: FUROSEMIDE 40MG/4ML VIAL IV SCH (09:00)
[2022-05-20] MEDS ORDERED: METAMUCIL (PSYLLIUM) PACKET PO SCH (09:00)
[2022-05-20] MEDS ORDERED: SENNA 8.6 MG TAB (SENOKOT) PO PRN (09:35)
[2022-05-20 11:57] VITALS: BP 109/72
[2022-05-20] MEDS: NYSTATIN 100,000 UNITS/GM TOPICAL PWD 15GM TOP SCH (12:13)
[2022-05-20] MEDS: cefTRIAXone SOD 1 GM in D5W MINI-BAG PLUS 50 ML IV SCH (12:14)
[2022-05-20 15:15] LABS: BLOOD UREA NITROGEN 41 MG/DL (9-23); CALCIUM LEVEL 8.7 MG/DL (8.3-10.6); CARBON DIOXIDE LEVEL 30 MMOL/L (20-31); CHLORIDE LEVEL 98 MMOL/L (98-107); CREATININE FOR GFR 0.82 MG/DL (0.55-1.30); GLOMERULAR FILTRATION RATE > 60.0 (>39); GLUCOSE, FASTING 312 MG/DL (74-106); POTASSIUM SERUM 4.7 MMOL/L (3.5-5.1); SODIUM LEVEL 139 MMOL/L (136-145)
[2022-05-20 16:34] VITALS: BP 101/57
[2022-05-20 17:47] LABS: ABG BASE EXCESS 6.8 (-2.0-2.0); ABG HCO3 33.5 MEQ/L (22.0-26.0); ABG O2 SATURATION 95.9 % (95.0-99.0); ABG PARTIAL PRESSURE CO2 56.7 mmHg (35.0-45.0); ABG PARTIAL PRESSURE O2 80.2 mmHg (75.0-100.0); ABG STANDARD HCO3 30.7 MEQ/L (22.0-26.0); ABG TOTAL CO2 35.2 MEQ/L (23.0-31.0); ABG pH (ARTERIAL) 7.389 UNITS (7.350-7.450)
[2022-05-20 20:00] VITALS: BP 129/76
[2022-05-20] MEDS: FUROSEMIDE 40MG/4ML VIAL IV SCH (20:41)
[2022-05-20] MEDS: METAMUCIL (PSYLLIUM) PACKET PO SCH (20:42)
[2022-05-20] MEDS: ATORVASTATIN 20 MG TAB PO SCH (20:42)
[2022-05-20] MEDS: MIRALAX *UNIT DOSE* 17GM PACKET PO SCH (20:42)
[2022-05-21] VITALS: BP 111/71
[2022-05-21] MEDS: IPRATROPIUM 0.5MG/ALBUTEROL 2.5MG INH SOL UD 3ML (DUONEB) NEB SCH ×6 (00:15→19:18)
[2022-05-21] MEDS: ACETAMINOPHEN TAB 650MG DOSE (2X325MG) PO PRN ×2 (00:47→20:25)
[2022-05-21] MEDS: methylPREDNISolone 40MG 1ML VIAL IV SCH ×3 (01:08→17:30)
[2022-05-21] MEDS: guaiFENesin SYRUP 200MG 10ML UDC PO PRN ×2 (01:13→10:58)
[2022-05-21 04:00] VITALS: BP 118/72
[2022-05-21 04:44] LABS: HEMOGLOBIN 11.9 g/dl (12.0-15.5); LYMPH # 0.4 10^3/uL (1.5-5.0); LYMPH % 4.8 % (24.0-44.0); MEAN CORPUSCULAR HEMOGLOBIN 33.1 pg (27.0-33.0); MEAN CORPUSCULAR HGB CONC 30.5 g/dl (32.0-36.5); MEAN CORPUSCULAR VOLUME 108.6 fl (80.0-96.0); MONO # 0.3 10^3/uL (0.0-0.8); MONO % 3.6 % (2.0-8.0); NEUTROPHILS # 8.1 10^3/uL (1.5-8.5); PLATELET COUNT, AUTOMATED 176 10^3/uL (150-450); RED BLOOD COUNT 3.59 10^6/uL (4.00-5.40); WHITE BLOOD COUNT 8.9 10^3/uL (4.0-10.0)
[2022-05-21 05:06] LABS: MAGNESIUM LEVEL 2.4 MG/DL (1.8-2.4)
[2022-05-21 05:08] LABS: ALBUMIN 3.2 G/DL (3.2-5.2); ALKALINE PHOSPHATASE 73 U/L (46-116); ALT/SGPT 36 U/L (7.0-40); AST/SGOT 37 U/L (<34); BLOOD UREA NITROGEN 44 MG/DL (9-23); CARBON DIOXIDE LEVEL 35 MMOL/L (20-31); CHLORIDE LEVEL 97 MMOL/L (98-107); GLOMERULAR FILTRATION RATE > 60.0 (>39); GLUCOSE, FASTING 215 MG/DL (74-106); POTASSIUM SERUM 4.8 MMOL/L (3.5-5.1); SODIUM LEVEL 138 MMOL/L (136-145); TOTAL PROTEIN 6.8 G/DL (5.7-8.2)
[2022-05-21] MEDS: LEVOTHYROXINE 50MCG TABLET (0.05MG) PO SCH (05:41)
[2022-05-21] MEDS: SYMBICORT 160/4.5MCG INHALER 6GM INH SCH ×2 (07:22→19:18)
[2022-05-21 08:00] VITALS: BP 110/66
[2022-05-21] MEDS: INSULIN LISPRO (NovoLOG) PER UNIT SC SCH ×4 (08:40→20:22)
[2022-05-21] MEDS: LEVEMIR (INSULIN DETEMIR) 1 UNITS/0.01ML SC SCH (08:40)
[2022-05-21] MEDS: APIXABAN 5 MG TAB (ELIQUIS) PO SCH ×2 (08:41→20:15)
[2022-05-21] MEDS: FUROSEMIDE 40MG/4ML VIAL IV SCH ×3 (08:41→20:15)
[2022-05-21] MEDS: MAGNESIUM OXIDE 400MG TAB (MAG-OX) PO SCH ×3 (08:41→20:15)
[2022-05-21] MEDS: MIDODRINE 5 MG TAB PO SCH ×3 (08:41→16:09)
[2022-05-21] MEDS: AZITHROMYCIN 250MG TABLET PO SCH (08:41)
[2022-05-21] MEDS: ASPIRIN 81MG ENTERIC TABLET PO SCH (08:41)
[2022-05-21] MEDS: NYSTATIN 100,000 UNITS/GM TOPICAL PWD 15GM TOP SCH ×2 (08:42→09:00)
[2022-05-21] MEDS: MIRALAX *UNIT DOSE* 17GM PACKET PO SCH ×2 (09:00→20:16)
[2022-05-21] MEDS: METAMUCIL (PSYLLIUM) PACKET PO SCH ×2 (09:00→20:15)
[2022-05-21 12:00] VITALS: BP 118/76
[2022-05-21] MEDS: cefTRIAXone SOD 1 GM in D5W MINI-BAG PLUS 50 ML IV SCH (12:45)
[2022-05-21] MEDS: BENZONATATE 100MG CAPSULE PO PRN (12:45)
[2022-05-21 16:00] VITALS: BP 103/71
[2022-05-21 20:00] VITALS: BP 127/72
[2022-05-21] MEDS: ATORVASTATIN 20 MG TAB PO SCH (20:15)
[2022-05-22] VITALS: BP 126/79
[2022-05-22] MEDS: IPRATROPIUM 0.5MG/ALBUTEROL 2.5MG INH SOL UD 3ML (DUONEB) NEB SCH ×6 (00:06→19:31)
[2022-05-22] MEDS: methylPREDNISolone 40MG 1ML VIAL IV SCH ×2 (01:48→15:32)
[2022-05-22 04:00] VITALS: BP 116/74
[2022-05-22 05:08] LABS: MAGNESIUM LEVEL 2.4 MG/DL (1.8-2.4)
[2022-05-22] MEDS: LEVOTHYROXINE 50MCG TABLET (0.05MG) PO SCH (06:07)
[2022-05-22 07:33] VITALS: BP 129/73
[2022-05-22 07:35] LABS: BLOOD UREA NITROGEN 49 MG/DL (9-23); CALCIUM LEVEL 8.6 MG/DL (8.3-10.6); CARBON DIOXIDE LEVEL 36 MMOL/L (20-31); CHLORIDE LEVEL 97 MMOL/L (98-107); CREATININE FOR GFR 0.87 MG/DL (0.55-1.30); GLOMERULAR FILTRATION RATE > 60.0 (>39); GLUCOSE, FASTING 230 MG/DL (74-106); POTASSIUM SERUM 4.4 MMOL/L (3.5-5.1); SODIUM LEVEL 140 MMOL/L (136-145)
[2022-05-22] MEDS: NYSTATIN 100,000 UNITS/GM TOPICAL PWD 15GM TOP SCH (08:07)
[2022-05-22] MEDS: MAGNESIUM OXIDE 400MG TAB (MAG-OX) PO SCH (08:08)
[2022-05-22] MEDS: ASPIRIN 81MG ENTERIC TABLET PO SCH (08:08)
[2022-05-22] MEDS: AZITHROMYCIN 250MG TABLET PO SCH (08:08)
[2022-05-22] MEDS: APIXABAN 5 MG TAB (ELIQUIS) PO SCH ×2 (08:08→20:58)
[2022-05-22] MEDS: INSULIN LISPRO (NovoLOG) PER UNIT SC SCH ×4 (08:08→20:58)
[2022-05-22] MEDS: MIDODRINE 5 MG TAB PO SCH ×3 (08:08→15:32)
[2022-05-22] MEDS: METAMUCIL (PSYLLIUM) PACKET PO SCH ×2 (08:08→20:59)
[2022-05-22] MEDS: MIRALAX *UNIT DOSE* 17GM PACKET PO SCH ×2 (08:08→20:59)
[2022-05-22] MEDS: FUROSEMIDE 40MG/4ML VIAL IV SCH ×3 (08:09→20:59)
[2022-05-22] MEDS: LEVEMIR (INSULIN DETEMIR) 1 UNITS/0.01ML SC SCH (08:09)
[2022-05-22] MEDS: SYMBICORT 160/4.5MCG INHALER 6GM INH SCH ×2 (08:22→19:31)
[2022-05-22 11:59] VITALS: BP 105/68
[2022-05-22 15:27] VITALS: BP 123/73
[2022-05-22 20:00] VITALS: BP 109/77
[2022-05-22] MEDS ORDERED: PANTOPRAZOLE 40MG VIAL IV ONE (20:45)
[2022-05-22] MEDS: ATORVASTATIN 20 MG TAB PO SCH (20:58)
[2022-05-23] VITALS (8 sets, daily range): BP systolic 101–123; BP diastolic 60–76; O2SAT 90
[2022-05-23] MEDS: IPRATROPIUM 0.5MG/ALBUTEROL 2.5MG INH SOL UD 3ML (DUONEB) NEB SCH ×7 (00:20→23:39)
[2022-05-23] MEDS: methylPREDNISolone 40MG 1ML VIAL IV SCH (02:17)
[2022-05-23 04:36] LABS: BASO % 0.1 % (0.0-1.0); HEMOGLOBIN 12.3 g/dl (12.0-15.5); LYMPH # 0.7 10^3/uL (1.5-5.0); LYMPH % 9.1 % (24.0-44.0); MEAN CORPUSCULAR HEMOGLOBIN 33.4 pg (27.0-33.0); MEAN CORPUSCULAR HGB CONC 31.5 g/dl (32.0-36.5); MONO # 0.6 10^3/uL (0.0-0.8); MONO % 7.7 % (2.0-8.0); NEUTROPHILS # 6.5 10^3/uL (1.5-8.5); NEUTROPHILS % 82.5 % (36.0-66.0); PLATELET COUNT, AUTOMATED 192 10^3/uL (150-450); RED BLOOD COUNT 3.68 10^6/uL (4.00-5.40); WHITE BLOOD COUNT 7.9 10^3/uL (4.0-10.0)
[2022-05-23 05:01] LABS: MAGNESIUM LEVEL 2.4 MG/DL (1.8-2.4)
[2022-05-23 05:05] LABS: BLOOD UREA NITROGEN 39 MG/DL (9-23); CALCIUM LEVEL 8.5 MG/DL (8.3-10.6); CARBON DIOXIDE LEVEL > 40.0 MMOL/L (20-31); CHLORIDE LEVEL 96 MMOL/L (98-107); GLOMERULAR FILTRATION RATE > 60.0 (>39); GLUCOSE, FASTING 176 MG/DL (74-106); SODIUM LEVEL 140 MMOL/L (136-145)
[2022-05-23] MEDS: LEVOTHYROXINE 50MCG TABLET (0.05MG) PO SCH (05:55)
[2022-05-23] MEDS: INSULIN LISPRO (NovoLOG) PER UNIT SC SCH ×4 (08:28→21:00)
[2022-05-23] MEDS: FUROSEMIDE 40MG/4ML VIAL IV SCH ×3 (08:29→21:33)
[2022-05-23] MEDS: AZITHROMYCIN 250MG TABLET PO SCH (08:29)
[2022-05-23] MEDS: MIDODRINE 5 MG TAB PO SCH ×3 (08:29→15:27)
[2022-05-23] MEDS: ASPIRIN 81MG ENTERIC TABLET PO SCH (08:29)
[2022-05-23] MEDS: LEVEMIR (INSULIN DETEMIR) 1 UNITS/0.01ML SC SCH (08:29)
[2022-05-23] MEDS: APIXABAN 5 MG TAB (ELIQUIS) PO SCH ×2 (08:29→21:32)
[2022-05-23] MEDS: NYSTATIN 100,000 UNITS/GM TOPICAL PWD 15GM TOP SCH (08:30)
[2022-05-23] MEDS: SYMBICORT 160/4.5MCG INHALER 6GM INH SCH ×2 (08:55→20:00)
[2022-05-23] MEDS: METAMUCIL (PSYLLIUM) PACKET PO SCH ×2 (08:57→21:00)
[2022-05-23] MEDS: MIRALAX *UNIT DOSE* 17GM PACKET PO SCH ×2 (08:57→21:00)
[2022-05-23] MEDS: ATORVASTATIN 20 MG TAB PO SCH (21:33)
[2022-05-23] MEDS: guaiFENesin SYRUP 200MG 10ML UDC PO PRN (21:33)
[2022-05-24] MEDS: IPRATROPIUM 0.5MG/ALBUTEROL 2.5MG INH SOL UD 3ML (DUONEB) NEB SCH ×5 (03:34→18:30)
[2022-05-24 06:00] VITALS: BP 103/73
[2022-05-24] MEDS: INSULIN LISPRO (NovoLOG) PER UNIT SC SCH ×3 (07:30→17:30)
[2022-05-24] MEDS: SYMBICORT 160/4.5MCG INHALER 6GM INH SCH ×2 (07:57→18:30)
[2022-05-24 07:58] VITALS: O2SAT 92
[2022-05-24 08:00] LABS: BASO % 0.1 % (0.0-1.0); EOS # 0.1 10^3/uL (0.0-0.5); HEMATOCRIT 37.9 % (36.0-47.0); HEMOGLOBIN 11.8 g/dl (12.0-15.5); LYMPH # 1.9 10^3/uL (1.5-5.0); LYMPH % 20.5 % (24.0-44.0); MEAN CORPUSCULAR HEMOGLOBIN 33.3 pg (27.0-33.0); MEAN CORPUSCULAR HGB CONC 31.1 g/dl (32.0-36.5); MEAN CORPUSCULAR VOLUME 107.1 fl (80.0-96.0); MONO # 0.9 10^3/uL (0.0-0.8); MONO % 9.5 % (2.0-8.0); NEUTROPHILS # 6.2 10^3/uL (1.5-8.5); NEUTROPHILS % 68.5 % (36.0-66.0); PLATELET COUNT, AUTOMATED 197 10^3/uL (150-450); RED BLOOD COUNT 3.54 10^6/uL (4.00-5.40); WHITE BLOOD COUNT 9.1 10^3/uL (4.0-10.0)
[2022-05-24 08:01] LABS: MAGNESIUM LEVEL 2.2 MG/DL (1.8-2.4)
[2022-05-24 08:11] LABS: BLOOD UREA NITROGEN 43 MG/DL (9-23); CALCIUM LEVEL 8.3 MG/DL (8.3-10.6); CARBON DIOXIDE LEVEL > 40.0 MMOL/L (20-31); CHLORIDE LEVEL 94 MMOL/L (98-107); CREATININE FOR GFR 0.86 MG/DL (0.55-1.30); GLOMERULAR FILTRATION RATE > 60.0 (>39); GLUCOSE, FASTING 82 MG/DL (74-106); POTASSIUM SERUM 3.8 MMOL/L (3.5-5.1); SODIUM LEVEL 142 MMOL/L (136-145)
[2022-05-24] MEDS: MIRALAX *UNIT DOSE* 17GM PACKET PO SCH (09:00)
[2022-05-24] MEDS: METAMUCIL (PSYLLIUM) PACKET PO SCH (09:04)
[2022-05-24] MEDS: LEVEMIR (INSULIN DETEMIR) 1 UNITS/0.01ML SC SCH (09:05)
[2022-05-24] MEDS: MIDODRINE 5 MG TAB PO SCH ×3 (09:05→17:51)
[2022-05-24] MEDS: ASPIRIN 81MG ENTERIC TABLET PO SCH (09:05)
[2022-05-24] MEDS: APIXABAN 5 MG TAB (ELIQUIS) PO SCH (09:05)
[2022-05-24] MEDS: FUROSEMIDE 40MG/4ML VIAL IV SCH ×2 (09:05→17:24)
[2022-05-24] MEDS: NYSTATIN 100,000 UNITS/GM TOPICAL PWD 15GM TOP SCH (09:06)
[2022-05-24 10:17] VITALS: O2SAT 88
[2022-05-24 11:22] VITALS: O2SAT 93
[2022-05-24] MEDS ORDERED: META1POW PO (12:20)
[2022-05-24] MEDS ORDERED: NYST10006 TOP (12:20)
[2022-05-24] MEDS ORDERED: ATIV1TAB10 PO (12:20)
[2022-05-24] MEDS ORDERED: HYOS125TA PO (12:20)
[2022-05-24] MEDS ORDERED: TORS20TA2 PO (12:20)
[2022-05-24] MEDS ORDERED: IPRA0.00 NEB (12:20)
[2022-05-24] MEDS ORDERED: MORP1SOL5 PO (12:20)
[2022-05-24] MEDS ORDERED: GUAI100S51 PO (12:20)
[2022-05-24] MEDS ORDERED: SYMB16INH INH (12:22)
[2022-05-24 14:00] VITALS: BP 116/78
[2022-05-24 15:16] VITALS: O2SAT 91
[2022-05-24] MEDS: guaiFENesin SYRUP 200MG 10ML UDC PO PRN (18:28)
== END 2022-05-24 19:29 | disposition home or self-care (01) | DRG 64 ==
LOC: EDBD 19:27 → M ED 19:27 → M ED INP 05-14 02:18 → ENRESERV 05-14 16:50 → M ICU 05-15 09:45 → M MSPAV 05-23 18:33
PROVIDERS: ADMIT Internal Medicine; ATTEND Internal Medicine Nephrology
DX: I63.9 Cerebral infarction, unspecified (principal); I50.43 Acute on chronic combined systolic (congestive) and diastolic (congestive) heart failure; J96.21 Acute and chronic respiratory failure with hypoxia; I21.19 ST elevation (STEMI) myocardial infarction involving other coronary artery of inferior wall; L03.116 Cellulitis of left lower limb; J44.1 Chronic obstructive pulmonary disease with (acute) exacerbation; J44.0 Chronic obstructive pulmonary disease with (acute) lower respiratory infection; H34.10 Central retinal artery occlusion, unspecified eye; Z68.43 Body mass index [BMI] 50.0-59.9, adult; I13.0 Hypertensive heart and chronic kidney disease with heart failure and stage 1 through stage 4 chronic kidney disease, or unspecified chronic kidney disease; I25.10 Atherosclerotic heart disease of native coronary artery without angina pectoris; I27.20 Pulmonary hypertension, unspecified; G47.33 Obstructive sleep apnea (adult) (pediatric); E66.01 Morbid (severe) obesity due to excess calories; I50.811 Acute right heart failure; H47.011 Ischemic optic neuropathy, right eye; I27.81 Cor pulmonale (chronic); E11.22 Type 2 diabetes mellitus with diabetic chronic kidney disease; Z79.4 Long term (current) use of insulin; Z79.899 Other long term (current) drug therapy; Z87.891 Personal history of nicotine dependence; E78.5 Hyperlipidemia, unspecified; E02 Subclinical iodine-deficiency hypothyroidism; L30.4 Erythema intertrigo; Z66 Do not resuscitate; K59.00 Constipation, unspecified; E87.5 Hyperkalemia; E83.42 Hypomagnesemia; N18.30 Chronic kidney disease, stage 3 unspecified; Z91.119 Patient's noncompliance with dietary regimen due to unspecified reason; Z79.01 Long term (current) use of anticoagulants; I87.2 Venous insufficiency (chronic) (peripheral); I89.0 Lymphedema, not elsewhere classified; Z86.711 Personal history of pulmonary embolism; Z99.81 Dependence on supplemental oxygen